=== PATIENT | male | born 1945 | race Caucasian/White ===

== ENCOUNTER 2016-04-23 19:54 | Emergency (ER) | payer MEDICARE, OTHER ==
[2016-04-23 20:02] VITALS: RESP 18
[2016-04-23] MEDS ORDERED: SODIUM CHLORIDE 0.9% 500 ML IV STA (20:12)
[2016-04-23] MEDS ORDERED: SODIUM CHLORIDE 0.9% 1,000 ML IV STA (20:12)
--- NOTE | 2016-04-23 20:13 | ED ---
General Adult HPI - General Source: patient, RN notes reviewed, old records reviewed Mode of arrival: wheelchair Limitations: no limitations <Paddy Rangel - Last Filed: 04/23/16 20:19> <Edu Burgess - Last Filed: 04/23/16 23:08> - General Chief complaint: Dizziness Stated complaint: dizzy Time Seen by Provider: 04/23/16 20:12 - History of Present Illness Initial comments: This is a 70-year-old male here for evaluation of weakness and dizziness. Patient's is been feeling dizzy and weak for about 2 hours. No significant other complaints, mild source of breath or cough. No fevers, no chest pain no abdominal pain no nausea vomiting or diarrhea. The room is not spinning around , patient is not feeling SL. (Paddy Rangel) - Related Data Previous Rx's Medication Instructions Recorded Levofloxacin [Levaquin] 500 mg PO DAILY #7 tab 04/23/16 Meclizine [Antivert] 25 mg PO TID #20 tab 04/23/16 Allergies Allergy/AdvReac Type Severity Reaction Status Date / Time No Known Allergies Allergy Verified 06/12/15 21:06 Review of Systems ROS Other: All systems not noted in ROS Statement are negative. <Paddy Rangel - Last Filed: 04/23/16 20:19> ROS Other: All systems not noted in ROS Statement are negative. <Eud Burgess - Last Filed: 04/23/16 23:08> ROS Statement: Those systems with pertinent positive or pertinent negative responses have been documented in the HPI. Past Medical History Past Medical History: COPD, Hyperlipidemia, Hypertension History of Any Multi-Drug Resistant Organisms: None Reported Past Surgical History: Hernia Repair Past Psychological History: No Psychological Hx Reported Smoking Status: Current every day smoker Past Alcohol Use History: None Reported Past Drug Use History: None Reported <Paddy Rangel - Last Filed: 04/23/16 20:19> General Exam Limitations: no limitations General appearance: alert, in no apparent distress Head exam: Present: atraumatic, normocephalic, normal inspection Eye exam: Present: normal appearance, PERRL, EOMI. Absent: scleral icterus, conjunctival injection, periorbital swelling ENT exam: Present: normal exam, mucous membranes moist Neck exam: Present: normal inspection. Absent: tenderness, meningismus, lymphadenopathy Respiratory exam: Present: normal lung sounds bilaterally. Absent: respiratory distress, wheezes, rales, rhonchi, stridor Cardiovascular Exam: Present: regular rate, normal rhythm, normal heart sounds. Absent: systolic murmur, diastolic murmur, rubs, gallop, clicks GI/Abdominal exam: Present: soft, normal bowel sounds. Absent: distended, tenderness, guarding, rebound, rigid Extremities exam: Present: normal inspection, full ROM, normal capillary refill. Absent: tenderness, pedal edema, joint swelling, calf tenderness Back exam: Present: normal inspection Neurological exam: Present: alert, oriented X3, CN II-XII intact Psychiatric exam: Present: normal affect, normal mood Skin exam: Present: warm, dry, intact, normal color. Absent: rash <Paddy Rangel - Last Filed: 04/23/16 20:19> Course <Paddy Rangel - Last Filed: 04/23/16 20:19> <Edu Burgess - Last Filed: 04/23/16 23:08> Vital Signs 04/23/16 04/23/16 19:59 21:02 Temperature 98.0 F Pulse Rate 85 77 Respiratory 18 18 Rate Blood Pressure 148/78 168/91 O2 Sat by Pulse 94 L 98 Oximetry - Reevaluation(s) Reevaluation #1: 04/23/16 23:04 The patient was endorsed to me at shift change by Dr. Rangel. CAT scan urine was pending also x-rays imaging shows no acute findings UA did show some evidence of possible infection. Patient was feeling hot he states when the episodes occurred the presentation is consistent with vertigo. He will be placed on appropriate medication (Edu Burgess) EKG Findings - EKG Comments: EKG Findings:: EKG shows normal sinus arm AV 2, VA 154, QRS 90, QTc 462 <Paddy Rangel - Last Filed: 04/23/16 20:19> Medical Decision Making - Lab Data Result diagrams: 04/23/16 20:23 04/23/16 20:23 <Edu Burgess - Last Filed: 04/23/16 23:08> - Lab Data Lab Results 04/23/16 04/23/16 04/23/16 Range/Units 20:23 20:23 20:23 WBC 6.3 (3.8-10.6) k/uL RBC 4.37 (4.30-5.90) m/uL Hgb 14.2 (13.0-17.5) gm/dL Hct 41.8 (39.0-53.0) % MCV 95.6 (80.0-100.0) fL MCH 32.6 (25.0-35.0) pg MCHC 34.1 (31.0-37.0) g/dL RDW 12.5 (11.5-15.5) % Plt Count 178 (150-450) k/uL Neutrophils % 64 % Lymphocytes % 22 % Monocytes % 6 % Eosinophils % 5 % Basophils % 1 % Neutrophils # 4.0 (1.3-7.7) k/uL Lymphocytes # 1.4 (1.0-4.8) k/uL Monocytes # 0.4 (0-1.0) k/uL Eosinophils # 0.3 (0-0.7) k/uL Basophils # 0.1 (0-0.2) k/uL PT (9.0-12.0) sec INR (<1.1) APTT (22.0-30.0) sec Sodium 143 (137-145) mmol/L Potassium 4.1 (3.5-5.1) mmol/L Chloride 108 H (98-107) mmol/L Carbon Dioxide 25 (22-30) mmol/L Anion Gap 10 mmol/L BUN 10 (9-20) mg/dL Creatinine 1.00 (0.66-1.25) mg/dL Est GFR (MDRD) Af Amer >60 (>60 ml/min/1.73 sqM) Est GFR (MDRD) Non-Af >60 (>60 ml/min/1.73 sqM) Glucose 126 H (74-99) mg/dL Calcium 9.2 (8.4-10.2) mg/dL Phosphorus 4.3 (2.5-4.5) mg/dL Magnesium 2.1 (1.6-2.3) mg/dL Total Bilirubin 0.6 (0.2-1.3) mg/dL AST 22 (17-59) U/L ALT 42 (21-72) U/L Alkaline Phosphatase 54 (38-126) U/L Total Creatine Kinase 121 (55-170) U/L CK-MB (CK-2) 1.8 (0.0-2.4) ng/mL CK-MB (CK-2) Rel Index 1.5 Troponin I <0.012 (0.000-0.034) ng/mL Total Protein 6.9 (6.3-8.2) g/dL Albumin 4.4 (3.5-5.0) g/dL Urine Color Urine Appearance (Clear) Urine pH (5.0-8.0) Ur Specific [place] (1.001-1.035) Urine Protein (Negative) Urine Glucose (UA) (Negative) Urine Ketones (Negative) Urine Blood (Negative) Urine Nitrate (Negative) Urine Bilirubin (Negative) Urine Urobilinogen (<2.0) mg/dL Ur Leukocyte Esterase (Negative) Urine RBC (0-5) /hpf Urine WBC (0-5) /hpf Urine Bacteria (None) /hpf Urine Mucus (None) /hpf 04/23/16 04/23/16 Range/Units 20:23 21:50 WBC (3.8-10.6) k/uL RBC (4.30-5.90) m/uL Hgb (13.0-17.5) gm/dL Hct (39.0-53.0) % MCV (80.0-100.0) fL MCH (25.0-35.0) pg MCHC (31.0-37.0) g/dL RDW (11.5-15.5) % Plt Count (150-450) k/uL Neutrophils % % Lymphocytes % % Monocytes % % Eosinophils % % Basophils % % Neutrophils # (1.3-7.7) k/uL Lymphocytes # (1.0-4.8) k/uL Monocytes # (0-1.0) k/uL Eosinophils # (0-0.7) k/uL Basophils # (0-0.2) k/uL PT 10.4 (9.0-12.0) sec INR 1.0 (<1.1) APTT 24.3 (22.0-30.0) sec Sodium (137-145) mmol/L Potassium (3.5-5.1) mmol/L Chloride (98-107) mmol/L Carbon Dioxide (22-30) mmol/L Anion Gap mmol/L BUN (9-20) mg/dL Creatinine (0.66-1.25) mg/dL Est GFR (MDRD) Af Amer (>60 ml/min/1.73 sqM) Est GFR (MDRD) Non-Af (>60 ml/min/1.73 sqM) Glucose (74-99) mg/dL Calcium (8.4-10.2) mg/dL Phosphorus (2.5-4.5) mg/dL Magnesium (1.6-2.3) mg/dL Total Bilirubin (0.2-1.3) mg/dL AST (17-59) U/L ALT (21-72) U/L Alkaline Phosphatase (38-126) U/L Total Creatine Kinase (55-170) U/L CK-MB (CK-2) (0.0-2.4) ng/mL CK-MB (CK-2) Rel Index Troponin I (0.000-0.034) ng/mL Total Protein (6.3-8.2) g/dL Albumin (3.5-5.0) g/dL Urine Color Light Yellow Urine Appearance Cloudy (Clear) Urine pH 7.0 (5.0-8.0) Ur Specific [place] 1.006 (1.001-1.035) Urine Protein Negative (Negative) Urine Glucose (UA) Negative (Negative) Urine Ketones Negative (Negative) Urine Blood Negative (Negative) Urine Nitrate Negative (Negative) Urine Bilirubin Negative (Negative) Urine Urobilinogen <2.0 (<2.0) mg/dL Ur Leukocyte Esterase Large H (Negative) Urine RBC 1 (0-5) /hpf Urine WBC 37 H (0-5) /hpf Urine Bacteria Rare H (None) /hpf Urine Mucus Rare H (None) /hpf Disposition <Paddy Rangel - Last Filed: 04/23/16 20:19> <Edu Burgess - Last Filed: 04/23/16 23:08> Clinical Impression: Benign positional vertigo, Urinary tract infection Disposition: HOME SELF-CARE Condition: Good Instructions: Dizziness (ED), Vertigo (ED), Urinary Tract Infection in Men (ED) Prescriptions: Levofloxacin [Levaquin] 500 mg PO DAILY #7 tab Meclizine [Antivert] 25 mg PO TID #20 tab
--- NOTE | 2016-04-23 20:40 | XR ---
EXAMINATION TYPE: XR chest 2V DATE OF EXAM: 04/23/2016 8:35 PM COMPARISON: NONE HISTORY: Weakness and dizziness TECHNIQUE: Frontal and lateral views of the chest are obtained. FINDINGS: Heart and mediastinum are normal. There is mild coarsening of interstitial markings. There is no heart failure. There is no definite pleural effusion. There are no hilar masses. IMPRESSION: Pulmonary fibrotic changes. No gross heart failure.
[2016-04-23 20:42] LABS: Basophils # (A) 0.1 k/uL (0-0.2); Basophils % (A) 1 %; CH 34.1; CHCM 35.8; Eosinophils # (A) 0.3 k/uL (0-0.7); Eosinophils % (A) 5 %; HCT 41.8 % (39.0-53.0); HDW 2.57; HGB 14.2 gm/dL (13.0-17.5); Luc % (Auto) 2; Lymphocytes # (A) 1.4 k/uL (1.0-4.8); Lymphocytes % (A) 22 %; MCH 32.6 pg (25.0-35.0); MCHC 34.1 g/dL (31.0-37.0); MCV 95.6 fL (80.0-100.0); Mean Platelet Volume 7.2; Monocytes # (A) 0.4 k/uL (0-1.0); Monocytes % (A) 6 %; Neutrophils % (A) 64 %; RBC 4.37 m/uL (4.30-5.90); RDW 12.5 % (11.5-15.5); WBC 6.3 k/uL (3.8-10.6); WBC (Perox) 6.76
[2016-04-23 20:51] LABS: Partial Thromboplastin Time 24.3 sec (22.0-30.0); Prothrombin Time 10.4 sec (9.0-12.0)
[2016-04-23 20:57] LABS: ALT 42 U/L (21-72); AST 22 U/L (17-59); Alkaline Phosphatase 54 U/L (38-126); Anion Gap 10 mmol/L; Blood Urea Nitrogen 10 mg/dL (9-20); Calcium 9.2 mg/dL (8.4-10.2); Carbon Dioxide 25 mmol/L (22-30); Chloride 108 mmol/L (98-107); Glucose 126 mg/dL (74-99); Magnesium 2.1 mg/dL (1.6-2.3); Non-African American GFR(MDRD) >60 (>60 ml/min/1.73 sqM); Phosphorous 4.3 mg/dL (2.5-4.5); Potassium 4.1 mmol/L (3.5-5.1); Sodium 143 mmol/L (137-145); Total Bilirubin 0.6 mg/dL (0.2-1.3); Total Protein 6.9 g/dL (6.3-8.2)
--- NOTE | 2016-04-23 20:59 | CT ---
EXAMINATION TYPE: CT brain wo con DATE OF EXAM: 04/23/2016 8:44 PM COMPARISON: April 26, 2013 HISTORY: Patient poor historian. Patient complains of dizziness. CT DLP: 814.2 mGycm Automated exposure control for dose reduction was used. FINDINGS: There is some cerebral cortical atrophy. There is no mass effect nor midline shift. There is no evide nce of intracranial hemorrhage. Calvarium is intact. There is minimal mucosal thickening in the ethmo id air cells. IMPRESSION: Cerebral atrophy. No acute intracranial abnormality. Minimal ethmoid sinusitis. No significant change compared to old exam.
[2016-04-23 21:11] LABS: Creatine Kinase 121 U/L (55-170)
[2016-04-23 21:25] LABS: Creatine Kinase MB 1.8 ng/mL (0.0-2.4); Troponin I <0.012 ng/mL (0.000-0.034)
[2016-04-23 22:14] LABS: Appearance,Urine Cloudy (Clear); Bacteria,Urine Rare /hpf; Bilirubin,Urine Negative (Negative); Glucose,Urine (UA) Negative (Negative); Ketones,Urine Negative (Negative); Leukocyte Esterase,Urine Large (Negative); Mucus,Urine Rare /hpf; Nitrite,Urine Negative (Negative); Particle Count 21439; Protein,Urine Negative (Negative); RBC,Urine 1 /hpf (0-5); Specific Gravity,Urine 1.006 (1.001-1.035); UA Billing (MACRO vs. MICRO) MICRO; Urobilinogen,Urine <2.0 mg/dL (<2.0); WBC,Urine 37 /hpf (0-5)
[2016-04-23] MEDS ORDERED: MECLIZINE 12.5 MG TAB PO STA (23:05)
[2016-04-23] MEDS ORDERED: LEVOFLOXACIN 500 MG TAB PO STA (23:05)
[2016-04-24 00:25] VITALS: BP 160/97; PULSE 88; TEMP 98.9
== END 2016-04-23 23:35 | disposition home or self-care (01) ==
LOC: EC 19:54
DX: H81.10 Benign paroxysmal vertigo, unspecified ear (principal); N39.0 Urinary tract infection, site not specified; F17.200 Nicotine dependence, unspecified, uncomplicated; G31.9 Degenerative disease of nervous system, unspecified; J84.10 Pulmonary fibrosis, unspecified
CPT/HCPCS: 36415; 70450; 71020; 80053; 81001; 82550; 82553; 83735; 84100; 84484; 85025; 85610; 85730; 87086; 93005; 96360; 96361; 99285

== ENCOUNTER 2016-05-12 18:50 | Inpatient (IN) | payer MEDICARE, OTHER ==
[2016-05-12] MEDS ORDERED: SODIUM CHLORIDE 0.9% 1,000 ML IV STA (19:40)
[2016-05-12] MEDS ORDERED: SCOPOLAMINE 1.5MG/72HR PATCH TRANSDERM STA (19:41)
[2016-05-12] MEDS ORDERED: METOCLOPRAMIDE 5 MG/ML 2 ML VIAL IVP STA (19:41)
[2016-05-12] MEDS ORDERED: MECLIZINE 12.5 MG TAB PO STA (19:41)
--- NOTE | 2016-05-12 19:44 | ED ---
General Adult HPI - General Chief complaint: Weakness Stated complaint: weakness Time Seen by Provider: 05/12/16 19:21 Source: patient, family, EMS, RN notes reviewed Mode of arrival: EMS Limitations: no limitations - History of Present Illness Initial comments: Patient is a pleasant 70-year-old male presenting to the emergency department complaining of dizziness. Symptoms have been present for the past almost 2 months. Patient has dizziness that described as a spinning type sensation. Symptoms do worsen with movement and upright position. Patient states symptoms have been worse the past 6 days. Patient states when symptoms get bad he feels like he could pass out. Patient has seen his doctor for this and has been given medicine however symptoms continue. No confusion. No isolated area of weakness. Son would like patient admitted. - Related Data Previous Rx's Medication Instructions Recorded Levofloxacin [Levaquin] 500 mg PO DAILY #7 tab 04/23/16 Meclizine [Antivert] 25 mg PO TID #20 tab 04/23/16 Allergies Allergy/AdvReac Type Severity Reaction Status Date / Time No Known Allergies Allergy Verified 05/12/16 20:45 Review of Systems ROS Statement: Those systems with pertinent positive or pertinent negative responses have been documented in the HPI. ROS Other: All systems not noted in ROS Statement are negative. Constitutional: Denies: fever Eyes: Denies: eye pain ENT: Denies: ear pain Respiratory: Denies: cough Cardiovascular: Denies: chest pain Endocrine: Denies: fatigue Gastrointestinal: Denies: abdominal pain Genitourinary: Denies: dysuria Musculoskeletal: Denies: back pain Skin: Denies: rash Neurological: Reports: vertigo. Denies: headache, weakness, numbness, paresthesias, confusion Past Medical History Past Medical History: COPD, Hyperlipidemia, Hypertension History of Any Multi-Drug Resistant Organisms: None Reported Past Surgical History: Hernia Repair Past Psychological History: No Psychological Hx Reported Smoking Status: Current every day smoker Past Alcohol Use History: None Reported Past Drug Use History: None Reported General Exam Limitations: no limitations General appearance: alert, in no apparent distress Head exam: Present: atraumatic, normocephalic Eye exam: Present: normal appearance, PERRL, EOMI. Absent: nystagmus ENT exam: Present: normal oropharynx, TM's normal bilaterally Neck exam: Present: normal inspection Respiratory exam: Present: normal lung sounds bilaterally Cardiovascular Exam: Present: regular rate, normal rhythm GI/Abdominal exam: Present: soft. Absent: tenderness Extremities exam: Present: normal inspection Neurological exam: Present: alert, CN II-XII intact. Absent: motor sensory deficit Expanded Speech: Present: fluid speech Cranial nerves: EOM's Intact: Normal, Facial Sensation: Normal Cerebellar function: Finger to Nose: Normal Sensory exam: Upper Extremity Light Touch: Normal, Lower Extremity Light Touch: Normal Motor strength exam: RUE: 5, LUE: 5, RLE: 5, LLE: 5 Eye Response: (4) open spontaneously Motor Response: (6) obeys commands Verbal Response: (5) oriented Psychiatric exam: Present: normal affect, normal mood Skin exam: Absent: rash Course Vital Signs 05/12/16 05/12/16 05/12/16 18:53 19:37 20:35 Temperature 98.1 F 97.0 F L 98.8 F Pulse Rate 82 80 84 Respiratory 20 18 16 Rate Blood Pressure 158/95 179/90 163/96 O2 Sat by Pulse 97 98 97 Oximetry 05/12/16 21:00 Temperature Pulse Rate 87 Respiratory 20 Rate Blood Pressure 168/90 O2 Sat by Pulse 98 Oximetry EKG Findings - EKG Comments: EKG Findings:: Normal sinus rhythm at 79. Normal intervals. Left axis. Normal QRS. No acute ST change. Medical Decision Making - Medical Decision Making Patient reexamined and still has plaints of dizziness. Case was discussed with Dr. Granger, who will admit for Dr. House. CTA will be ordered. - Lab Data Result diagrams: 05/12/16 19:05 05/12/16 20:30 Lab Results 05/12/16 05/12/16 05/12/16 Range/Units 19:05 20:30 20:30 WBC 7.5 (3.8-10.6) k/uL RBC 4.53 (4.30-5.90) m/uL Hgb 15.7 (13.0-17.5) gm/dL Hct 44.6 (39.0-53.0) % MCV 98.5 (80.0-100.0) fL MCH 34.6 (25.0-35.0) pg MCHC 35.1 (31.0-37.0) g/dL RDW 12.3 (11.5-15.5) % Plt Count 217 (150-450) k/uL Neutrophils % 64 % Lymphocytes % 21 % Monocytes % 8 % Eosinophils % 4 % Basophils % 1 % Neutrophils # 4.8 (1.3-7.7) k/uL Lymphocytes # 1.6 (1.0-4.8) k/uL Monocytes # 0.6 (0-1.0) k/uL Eosinophils # 0.3 (0-0.7) k/uL Basophils # 0.1 (0-0.2) k/uL PT 10.0 (9.0-12.0) sec INR 1.0 (<1.1) APTT 25.0 (22.0-30.0) sec Sodium (137-145) mmol/L Potassium (3.5-5.1) mmol/L Chloride (98-107) mmol/L Carbon Dioxide (22-30) mmol/L Anion Gap mmol/L BUN (9-20) mg/dL Creatinine (0.66-1.25) mg/dL Est GFR (MDRD) Af Amer (>60 ml/min/1.73 sqM) Est GFR (MDRD) Non-Af (>60 ml/min/1.73 sqM) Glucose (74-99) mg/dL Calcium (8.4-10.2) mg/dL Total Bilirubin (0.2-1.3) mg/dL AST (17-59) U/L ALT (21-72) U/L Alkaline Phosphatase (38-126) U/L Total Creatine Kinase 83 (55-170) U/L CK-MB (CK-2) 1.2 (0.0-2.4) ng/mL CK-MB (CK-2) Rel Index 1.4 Troponin I <0.012 (0.000-0.034) ng/mL Total Protein (6.3-8.2) g/dL Albumin (3.5-5.0) g/dL TSH (0.465-4.680) mIU/L 05/12/16 Range/Units 20:30 WBC (3.8-10.6) k/uL RBC (4.30-5.90) m/uL Hgb (13.0-17.5) gm/dL Hct (39.0-53.0) % MCV (80.0-100.0) fL MCH (25.0-35.0) pg MCHC (31.0-37.0) g/dL RDW (11.5-15.5) % Plt Count (150-450) k/uL Neutrophils % % Lymphocytes % % Monocytes % % Eosinophils % % Basophils % % Neutrophils # (1.3-7.7) k/uL Lymphocytes # (1.0-4.8) k/uL Monocytes # (0-1.0) k/uL Eosinophils # (0-0.7) k/uL Basophils # (0-0.2) k/uL PT (9.0-12.0) sec INR (<1.1) APTT (22.0-30.0) sec Sodium 139 (137-145) mmol/L Potassium 4.1 (3.5-5.1) mmol/L Chloride 105 (98-107) mmol/L Carbon Dioxide 22 (22-30) mmol/L Anion Gap 12 mmol/L BUN 5 L (9-20) mg/dL Creatinine 0.87 (0.66-1.25) mg/dL Est GFR (MDRD) Af Amer >60 (>60 ml/min/1.73 sqM) Est GFR (MDRD) Non-Af >60 (>60 ml/min/1.73 sqM) Glucose 109 H (74-99) mg/dL Calcium 9.1 (8.4-10.2) mg/dL Total Bilirubin 0.6 (0.2-1.3) mg/dL AST 19 (17-59) U/L ALT 32 (21-72) U/L Alkaline Phosphatase 79 (38-126) U/L Total Creatine Kinase (55-170) U/L CK-MB (CK-2) (0.0-2.4) ng/mL CK-MB (CK-2) Rel Index Troponin I (0.000-0.034) ng/mL Total Protein 7.3 (6.3-8.2) g/dL Albumin 4.3 (3.5-5.0) g/dL TSH 0.750 (0.465-4.680) mIU/L - Radiology Data Radiology results: report reviewed (Computed tomography scan of the brain shows a rounded high density areas with 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 No evidence of subarachnoid hemorrhage.), image reviewed (Chest x-ray shows fibrotic changes.) Disposition Clinical Impression: Vertigo Disposition: ADMITTED IP TO THIS HOSP
[2016-05-12 20:04] LABS: Basophils # (A) 0.1 k/uL (0-0.2); Basophils % (A) 1 %; CH 34.6; CHCM 35.3; Eosinophils # (A) 0.3 k/uL (0-0.7); Eosinophils % (A) 4 %; HCT 44.6 % (39.0-53.0); HDW 2.55; HGB 15.7 gm/dL (13.0-17.5); Luc # (Auto) 0.16; Luc % (Auto) 2; Lymphocytes # (A) 1.6 k/uL (1.0-4.8); Lymphocytes % (A) 21 %; MCH 34.6 pg (25.0-35.0); MCHC 35.1 g/dL (31.0-37.0); MCV 98.5 fL (80.0-100.0); Mean Platelet Volume 8.4; Monocytes # (A) 0.6 k/uL (0-1.0); Monocytes % (A) 8 %; Neutrophils # (A) 4.8 k/uL (1.3-7.7); Neutrophils % (A) 64 %; RBC 4.53 m/uL (4.30-5.90); RDW 12.3 % (11.5-15.5); WBC 7.5 k/uL (3.8-10.6); WBC (Perox) 7.23
--- NOTE | 2016-05-12 20:33 | CT ---
EXAMINATION TYPE: CT brain wo con DATE OF EXAM: 05/12/2016 8:23 PM COMPARISON: 04/23/2016 HISTORY: dizziness for 2-[address] DLP: 1145.1 mGycm Automated exposure control for dose reduction was used. FINDINGS: There is a rounded 11 mm high density mass at the tip of the basilar artery. This is also present on previous CT scans of 04/23/2016 and 04/26/2013 and appears not significantly different in size. The vent ricles have normal size. There is mild cerebral cortical atrophy. There is no midline shift. There is no sign of intracranial hemorrhage. 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 CT angiogram would be very helpful for further evaluation if clinically indicated. No evidence of subarachnoid hemorrhage. Cerebral atrophy.
--- NOTE | 2016-05-12 20:40 | XR ---
EXAMINATION TYPE: XR chest 2V DATE OF EXAM: 05/12/2016 8:30 PM COMPARISON: 04/23/2016 HISTORY: Weakness TECHNIQUE: Frontal and lateral views of the chest are obtained. FINDINGS: There is coarsening of interstitial pulmonary markings. There is a small hiatal hernia. Th ere is no definite heart failure. There is no pleural effusion. There are no hilar masses. Thoracic a fiona is atheromatous. There are chest leads. IMPRESSION: Interstitial fibrotic changes. Small hiatal hernia. Inspiration is improved slightly com pared to last exam.
[2016-05-12 20:52] LABS: ALT 32 U/L (21-72); AST 19 U/L (17-59); Alkaline Phosphatase 79 U/L (38-126); Anion Gap 12 mmol/L; Blood Urea Nitrogen 5 mg/dL (9-20); Calcium 9.1 mg/dL (8.4-10.2); Carbon Dioxide 22 mmol/L (22-30); Chloride 105 mmol/L (98-107); Glucose 109 mg/dL (74-99); Non-African American GFR(MDRD) >60 (>60 ml/min/1.73 sqM); Potassium 4.1 mmol/L (3.5-5.1); Sodium 139 mmol/L (137-145); Total Bilirubin 0.6 mg/dL (0.2-1.3); Total Protein 7.3 g/dL (6.3-8.2)
[2016-05-12] MEDS ORDERED: DIAZEPAM 5 MG/ML 2 ML SYRINGE IVP STA (21:01)
[2016-05-12 21:10] LABS: Creatine Kinase 83 U/L (55-170)
[2016-05-12 21:23] LABS: Creatine Kinase MB 1.2 ng/mL (0.0-2.4); Troponin I <0.012 ng/mL (0.000-0.034)
[2016-05-12] MEDS ORDERED: NALOXONE 0.4 MG/ML 1 ML VIAL IV PRN (21:33)
[2016-05-12] MEDS ORDERED: RX INFO: IV CONTRAST WAS GIVEN 1 EACH MISC MISCELLANE PRN (21:35)
[2016-05-12] MEDS ORDERED: MECLIZINE 25 MG TAB PO PRN (21:35)
[2016-05-12] MEDS ORDERED: SODIUM CHLORIDE 0.9% 1,000 ML IV SCH (21:45)
--- NOTE | 2016-05-12 22:46 | CT ---
EXAMINATION TYPE: CT angio head neck DATE OF EXAM: 05/12/2016 10:10 PM COMPARISON: NONE HISTORY: Dizziness for 2-[address] DLP: 401.8 mGycm CONTRAST: Performed with IV Contrast, patient injected with 65 mL of Omnipaque 350. Combination Contrast CTA cervical carotids and [place] CTA cervical carotids with 3-D recons truction Contrast CTA of the cervical carotids was performed 3-D reconstruction imaging obtained at a separate workstation. Mild atherosclerotic plaques are noted in the visualized thoracic aorta. Right carotid system: No significant plaque is seen of the right common carotid artery. There is mil d plaque also noted at the carotid bulb and proximal ICA with less than 50% narrowing.. No significa nt diameter reduction. ECA is patent. Right vertebral artery appears unremarkable except for mild atherosclerotic calcification in the base of the brain.. Left carotid system: No significant plaque is seen of the left common carotid artery. There is mild plaque also noted at the carotid bulb and proximal ICS with less than 50% narrowing. Mild narrowing i s suggested in the proximal left internal carotid artery. No significant diameter reduction. ECA is patent. Left vertebral artery appears unremarkable except for mild atherosclerotic plaques in the base of the brain with less than 50% narrowing.. OTHERS: Mild and symmetric changes are noted in the upper lung pena. [id number] degenerative changes are present in the cervical spine. IMPRESSION: 1. No significant diameter reduction to account for the patient's symptoms. 2. Mild atherosclerotic calcific plaques are noted in bilateral carotid bulb areas and proximal inter nal carotid arteries with less than 50% narrowing. 3. 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 CTA [place] WITH 3-D RECONSTRUCTION. Contrast CTA of the [place] was performed 3-D reconstruction imaging obtained at a separate workstation. Vertebrobasilar system as well as intracranial portions of the internal carotid arteries and their ma daron tributaries are patent. There is evidence of 1.2 cm aneurysm in the basilar tip area as seen in the axial image 13 series 10 and coronal image 19 series 7. Rest of the arterial structures including anterior, middle and posterior cerebral arteries and anteri or communicating and posterior communicating arteries appear grossly unremarkable.. Mild atherosclerotic calcification is noted in the vertebral arteries in the base of the brain withou t significant stenosis. Please note MRI provides greater sensitivity and specificity. Visualized brain appears grossly unrem arkable. Mild mucosal thickening is noted in the maxillary sinuses with chronic sinusitis changes. IMPRESSION: 1. 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 2. No other significant acute abnormality is noted in the visualized [place] arterial struct ures. A phone report is given to Dr. Clement at the time of the dictation.
[2016-05-12 23:03] VITALS: BMI 24.3
[2016-05-12 23:03] LABS: Appearance,Urine Clear (Clear); Bilirubin,Urine Negative (Negative); Glucose,Urine (UA) Negative (Negative); Ketones,Urine Negative (Negative); Leukocyte Esterase,Urine Small (Negative); Nitrite,Urine Negative (Negative); Particle Count 1680; Protein,Urine Negative (Negative); RBC,Urine 8 /hpf (0-5); Squamous Epithelial Cell,Urine 1 /hpf (0-4); UA Billing (MACRO vs. MICRO) MICRO; Urobilinogen,Urine <2.0 mg/dL (<2.0); WBC,Urine 4 /hpf (0-5)
[2016-05-12 23:10] LABS: Specific Gravity,Urine >1.050 (1.001-1.035)
[2016-05-12] MEDS ORDERED: NITROGLYCERIN SL TABS 0.4 MG TAB SUBLINGUAL PRN (23:38)
[2016-05-13] MEDS: METOCLOPRAMIDE 5 MG/ML 2 ML VIAL IVP SCH ×3 (00:34→13:59)
[2016-05-13] MEDS: MECLIZINE 25 MG TAB PO SCH ×3 (05:19→18:03)
[2016-05-13] MEDS ORDERED: CITALOPRAM HYDROBROMIDE 20 MG TAB PO SCH ×2 (09:00)
[2016-05-13] MEDS ORDERED: TAMSULOSIN 0.4 MG CAP.ER.24H PO SCH (09:00)
[2016-05-13] MEDS ORDERED: FUROSEMIDE 20 MG TAB PO SCH (09:00)
[2016-05-13] MEDS ORDERED: PREGABALIN 75 MG CAP PO SCH (09:00)
[2016-05-13] MEDS ORDERED: risperiDONE 0.5 MG TAB PO SCH (09:00)
[2016-05-13] MEDS ORDERED: HYDROcodone/APAP 5-325MG 1 EACH TAB PO SCH (09:00)
[2016-05-13] MEDS ORDERED: MELOXICAM 7.5 MG TAB PO SCH (09:00)
[2016-05-13 11:46] VITALS: PULSE 64; TEMP 98.7
--- NOTE | 2016-05-13 14:01 | P.CONS ---
History of Present Illness - Reason for Consult Consult date: 05/13/16 - Chief Complaint Vertigo - History of Present Illness Is a pleasant 70-year-old male being evaluated by the neurology service for complaints of dizziness and vertigo over the last 2 months. He was brought in the [facility] emergency room due to worsening in these conditions over the past 6 days. She has feelings of presyncope without van syncopal episode. He denies confusion with these episodes. He denies significant headache. He denies significant weakness. His vital signs are stable and he has no significant lab abnormalities on admission. Initial CT of the brain in the ER showed a rounded high density area suggestive of the basilar tip artery aneurysm. A subsequent CT angiogram of the head and neck were done. CTA of the neck showed no significant flow-limiting stenosis. 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 At the time of my exam he is walking back to his bed from the bathroom, and no acute distress. Review of Systems All systems: negative Past Medical History Past Medical History: COPD, Hyperlipidemia, Hypertension, Memory Impairment, Osteoarthritis (OA) Additional Past Medical History / Comment(s): Leaky coronary valves X3 History of Any Multi-Drug Resistant Organisms: None Reported Past Surgical History: Hernia Repair Past Anesthesia/Blood Transfusion Reactions: No Reported Reaction Past Psychological History: No Psychological Hx Reported Smoking Status: Current every day smoker Past Alcohol Use History: None Reported Past Drug Use History: None Reported - Past Family History Mother Family Medical History: Hypertension Medications and Allergies Home Medications Medication Instructions Recorded Confirmed Type Citalopram Hydrobromide 30 mg PO DAILY 05/12/16 05/13/16 History Furosemide [Lasix] 20 mg PO DAILY 05/12/16 05/13/16 History HYDROcodone/APAP 5-325MG [[place] 1 tab PO BID 05/12/16 05/13/16 History 5-325] Meloxicam 15 mg PO DAILY 05/12/16 05/13/16 History Nitroglycerin Sl Tabs [Nitrostat] 0.4 mg SUBLINGUAL Q5M PRN 05/12/16 05/13/16 History Pregabalin [Lyrica] 75 mg PO BID 05/12/16 05/13/16 History Simvastatin [Zocor] 40 mg PO HS 05/12/16 05/13/16 History Tamsulosin HCl [Flomax] 0.4 mg PO DAILY 05/12/16 05/13/16 History risperiDONE 0.5 mg PO QAM 05/12/16 05/13/16 History risperiDONE 2 mg PO HS 05/12/16 05/13/16 History QUEtiapine FUMARATE [SEROquel] 200 mg PO HS 05/13/16 05/13/16 History Allergies Allergy/AdvReac Type Severity Reaction Status Date / Time No Known Allergies Allergy Verified 05/12/16 23:10 Physical Exam Vitals: Vital Signs Temp Pulse Pulse Resp BP BP Pulse Ox 05/13/16 11:45 98.7 F 64 18 133/80 95 05/13/16 11:05 96 05/13/16 07:44 97.5 F L 76 18 107/73 96 05/13/16 04:00 98.5 F 73 18 130/80 96 05/12/16 23:23 78 18 138/84 94 L 05/12/16 22:20 97.7 F 73 18 196/99 95 05/12/16 22:03 96.9 F L 80 18 157/85 98 Intake and Output 05/12/16 05/13/16 05/13/16 22:59 06:59 14:59 Intake Total 275 340 Balance 275 340 Intake: Intake, IV Titration 175 Amount Sodium Chloride 0.9% 1, 175 000 ml @ 20 mls/hr IV . Q24H [facility] Rx#:[id number] Oral 100 340 Other: Voiding Method Toilet Toilet # Voids 2 1 Weight 74.843 kg 74.5 kg - Constitutional General appearance: average body habitus, cooperative - EENT Eyes: no abnormal pupil, PERRLA, no ptosis ENT: hearing grossly normal - Neck Neck: normal ROM, no rigidity - Respiratory Respiratory: negative: prolonged expiration, prolonged inspiration - Cardiovascular Rhythm: regular - Gastrointestinal General gastrointestinal: no distended, no tenderness - Neurologic He is alert awake and oriented 3. Speech and language are normal. There is no lateralizing weakness seen. Cranial nerves II through XII are intact globally. No tremors or seizure-like activities are seen. Results CBC & Chem 7: 05/12/16 19:05 05/12/16 20:30 Labs: Abnormal Lab Results - Last 24 Hours (Table) 02/17/17 Range/Units 22:46 Ur Specific [place] >1.050 H (1.001-1.035) Ur Leukocyte Esterase Small H (Negative) Urine RBC 8 H (0-5) /hpf Assessment and Plan (1) Brain aneurysm Status: Acute (2) Dizziness Status: Acute (3) Vertigo Status: Acute Plan: Although we do not believe that his aneurysm as the cause for his symptoms this cannot be totally excluded. Nevertheless he does need an urgent neurosurgical consult. For this he will need to be transferred. Nursing staff has been alerted to this on our working on finding an accepting facility. For now continue neurological checks. Otherwise he would be cleared for transfer. I have reviewed the history and physical on the above patient. I have reviewed the above note, and agree.
--- NOTE | 2016-05-13 17:28 | HP ---
DATE OF ADMISSION: 05/13/2016 CHIEF COMPLAINT: Dizziness. HISTORY OF PRESENT ILLNESS: Mr. Rudd is a 70-year-old male with a known history of hypertension, hyperlipidemia, COPD and bipolar disorder, came to the hospital with complaints of dizziness on and off for the past 2 months, patient says that he felt like spinning of the room and patient was also having vertigo. Sometimes patient feels like room spinning around and with the moment and upright position, which has been worse for the past 6 days. Patient says that when symptoms get bad, he feels like he could pass out. Patient has seen a primary care physician and was started on meclizine, but did not relieve his symptoms much. Otherwise, patient denied any headache or confusion, no fever, no chills. No recent illnesses or sick contacts at home. The patient otherwise denies any weakness of the legs and hands. Patient had a CT head done in the ER that showed there is a rounded high density area suggestive of basilar tip aneurysm and subsequent CT angiogram confirmed that. REVIEW OF SYSTEMS: CONSTITUTIONAL: The patient is a poor historian due to underlying bipolar disorder. No fever. No chills. No weakness or malaise. RESPIRATORY: No cough or sputum production. CARDIOVASCULAR: No chest pain. No shortness of breath. No leg swelling. ABDOMEN: No nausea, vomiting or abdominal pain. GENITOURINARY: Negative. ENDOCRINE: Negative. NEUROLOGIC: Patient does have dizziness. No lightheadedness. No headache. No numbness or tingling. GENITOURINARY: Negative. ( ). Negative. PSYCHIATRY: Negative. All other 14 point review of systems negative except as above. PAST MEDICAL HISTORY: Hypertension, hyperlipidemia, COPD, bipolar disorder. PAST SURGICAL HISTORY: Hernia repair. SOCIAL HISTORY: Currently an everyday smoker. Occasional alcohol use. Denied any drugs or IVDU. FAMILY HISTORY: Denied any history of hypertension, diabetes mellitus or premature heart disease in the family. ALLERGIES: No known drug allergies. Home medications include: 1. Meclizine. 2. Citalopram. 3. Lasix. 4. [place]. 5. Meloxicam. 6. Nitroglycerin. 7. Pregabalin. 8. Simvastatin. 9. Flomax. 10. Risperidone. 11. Seroquel. PHYSICAL EXAMINATION: A 70-year-old male lying in bed comfortably, awake, alert, oriented, x3. He appears in no apparent distress. VITALS: Blood pressure is 130/80, pulse is 73, respiratory rate 18, temperature afebrile. Pulse ox 92% on room air. HEENT: Atraumatic, normocephalic. Neck is supple. No JVD. CVS: S1, S2 heard. No murmurs or gallop. Patient does have systolic murmur 2/6 and no gallop. LUNGS: Bilateral air entry is present and decreased breath sounds basally. Nonlabored breathing. No wheezing. ABDOMEN: Soft, nontender. Bowel sounds present. HEALTH SERVICES MANAGER: Awake, alert, oriented x3. No focal neurologic deficits. EXTREMITIES: No edema. Pulses palpable bilaterally. No clubbing or cyanosis. PSYCHIATRIC: Cooperative. LABORATORY DATA: WBC 7.5, hemoglobin 15.7, platelets 217, INR 1.0, sodium 139, potassium 4.1, chloride 106, bicarb is 22, BUN 5, creatinine 0.87. Blood sugar is 109. Calcium 9.1. Troponin less than 0.012, TSH is 0.750. UA negative for infection. Albumin 4.3. Liver enzymes within normal limits. CT of the head was reviewed and CT angiogram of the chest was reviewed. EKG normal sinus rhythm. CHEST X-RAY: No acute cardiopulmonary process. IMPRESSION: 1. Dizziness and near syncope. 2. 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 3. Hypertension, controlled. 4. Hyperlipidemia. 5. Chronic obstructive pulmonary disease, stable. 6. Bipolar disorder/ psychiatry illness. 7. Deep venous thrombosis prophylaxis, heparin subcu. 8. Vertigo. DISCUSSION AND PLAN: Patient will be continued on meclizine at this time and the patient evaluated by neurology and recommended neurosurgery evaluation, aneurysm as etiology of his dizziness and vertigo cannot be excluded at this time. Continue with the home medications. Further recommendations based on clinical course. Patient is agreeable to be transferred to [facility].
[2016-05-13 17:56] VITALS: BP 140/81; RESP 16
[2016-05-13] MEDS ORDERED: ATORVASTATIN 20 MG TAB PO SCH (21:00)
[2016-05-13] MEDS ORDERED: QUEtiapine XR 200 MG TAB.ER.24H PO SCH (21:00)
[2016-05-13] MEDS ORDERED: risperiDONE 2 MG TAB PO SCH (21:00)
--- NOTE | 2016-05-15 09:30 | DS ---
DATE OF ADMISSION: 05/13/2016 DATE OF DISCHARGE: 05/13/2016 DISCHARGE DIAGNOSES: 1. Dizziness and near syncope. 2. 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 3. Hypertension. 4. Hyperlipidemia. 5. Chronic obstructive pulmonary disease, stable. 6. Bipolar disorder/psychiatric illness. 7. Deep venous thrombosis prophylaxis, heparin subQ. 8. History of vertigo. HOSPITAL COURSE: Mr. Rudd is a 70-year-old male with a known history of multiple medical problems as discussed above, was admitted to the hospital with dizziness for the past 2 months. Patient felt like room was spinning and was having vertigo-like symptoms, which has been worsening for the past 6 days. Patient came to the hospital. Patient underwent CT of the head showed rounded high-density areas suggesting of ( ) artery disease and patient underwent CT angio of the brain which came out the same. Patient was seen by Neurology and ( ) aneurysm of 1.2 cm and patient had symptoms of dizziness and vertigo even though is may not be related to symptoms related to his finding of aneurysm. Neurology recommended to be seen by Neurosurgery and I did discuss with the [facility] Transfer Team and also I did discuss with the [facility] ( ) staff. Agreed to accept the patient and patient was transferred to [facility] in stable condition. DISCHARGE PHYSICAL EXAMINATION: Laboratory data reviewed. Discharge medication reconciliation was done and patient was advised to follow with Dr. House upon discharge. Time taken more than 35 minutes including 18 minutes to field counsel the patient and coordinating discharge.
== END 2016-05-13 18:30 | disposition short-term general hospital (02) | DRG 149 ==
LOC: EC 18:50 → 3OBS 21:32 → OBSVTOIN 05-13 15:16
PROVIDERS: ADMIT Internal Medicine; ATTEND Internal Medicine
DX: R42 Dizziness and giddiness (principal); I67.1 Cerebral aneurysm, nonruptured; J44.9 Chronic obstructive pulmonary disease, unspecified; E78.5 Hyperlipidemia, unspecified; M19.90 Unspecified osteoarthritis, unspecified site; R55 Syncope and collapse; F31.9 Bipolar disorder, unspecified; I10 Essential (primary) hypertension; F17.200 Nicotine dependence, unspecified, uncomplicated; Z79.1 Long term (current) use of non-steroidal anti-inflammatories (NSAID); Z79.891 Long term (current) use of opiate analgesic; Z79.899 Other long term (current) drug therapy
CPT/HCPCS: 36415; 70450; 70496; 70498; 71020; 80053; 81001; 82550; 82553; 84443; 84484; 85025; 85610; 85730; 93005; 94760; 96374; 96375; 99285

== ENCOUNTER 2016-05-23 18:16 | Emergency (ER) | payer MEDICARE, OTHER ==
[2016-05-23] MEDS ORDERED: METOCLOPRAMIDE 5 MG/ML 2 ML VIAL IVP STA (18:42)
[2016-05-23] MEDS ORDERED: GLUCAGON 1 MG/ML VIAL IVP STA (18:42)
[2016-05-23] MEDS ORDERED: NITROGLYCERIN SL TABS 0.4 MG TAB SUBLINGUAL STA (18:43)
--- NOTE | 2016-05-23 18:46 | ED ---
General Adult HPI - General Chief complaint: ENT Stated complaint: Esophageal foreign body Time Seen by Provider: 05/23/16 18:33 Source: patient, family, EMS, RN notes reviewed Mode of arrival: EMS Limitations: no limitations - History of Present Illness Initial comments: Patient is a pleasant 70-year-old male presenting to the emergency department with concerns for esophageal foreign body. Patient was eating steak around 1 hour ago. Patient feels like it is stuck. Patient has been unable to swallow since that time. Patient has been spitting up. No dyspnea. Patient has had similar symptoms previously. Patient did have surgery for his hiatal hernia a few years ago. - Related Data Home Medications Medication Instructions Recorded Confirmed Citalopram Hydrobromide 30 mg PO DAILY 05/12/16 05/23/16 Furosemide [Lasix] 20 mg PO DAILY 05/12/16 05/23/16 HYDROcodone/APAP 5-325MG [[place] 1 tab PO BID 05/12/16 05/23/16 5-325] Meloxicam 15 mg PO DAILY 05/12/16 05/23/16 Nitroglycerin Sl Tabs [Nitrostat] 0.4 mg SUBLINGUAL Q5M PRN 05/12/16 05/23/16 Pregabalin [Lyrica] 75 mg PO BID 05/12/16 05/23/16 Simvastatin [Zocor] 40 mg PO DAILY 05/12/16 05/23/16 Tamsulosin HCl [Flomax] 0.4 mg PO DAILY 05/12/16 05/23/16 risperiDONE 0.5 mg PO QAM 05/12/16 05/23/16 risperiDONE 2 mg PO HS 05/12/16 05/23/16 QUEtiapine FUMARATE [SEROquel] 200 mg PO DAILY 05/13/16 05/23/16 Allergies Allergy/AdvReac Type Severity Reaction Status Date / Time No Known Allergies Allergy Verified 05/12/16 23:10 Review of Systems ROS Statement: Those systems with pertinent positive or pertinent negative responses have been documented in the HPI. ROS Other: All systems not noted in ROS Statement are negative. Constitutional: Denies: fever Eyes: Denies: eye pain ENT: Denies: ear pain Respiratory: Denies: cough, dyspnea Cardiovascular: Denies: chest pain Endocrine: Denies: fatigue Gastrointestinal: Reports: vomiting (Spitting up). Denies: abdominal pain Genitourinary: Denies: dysuria Musculoskeletal: Denies: back pain Skin: Denies: rash Neurological: Denies: weakness Past Medical History Past Medical History: COPD, Hyperlipidemia, Hypertension, Memory Impairment, Osteoarthritis (OA) Additional Past Medical History / Comment(s): Leaky coronary valves X3 History of Any Multi-Drug Resistant Organisms: None Reported Past Surgical History: Hernia Repair Past Anesthesia/Blood Transfusion Reactions: No Reported Reaction Past Psychological History: No Psychological Hx Reported Smoking Status: Current every day smoker Past Alcohol Use History: None Reported Past Drug Use History: None Reported - Past Family History Mother Family Medical History: Hypertension General Exam Limitations: no limitations General appearance: alert, in no apparent distress Head exam: Present: atraumatic Eye exam: Present: normal appearance, PERRL ENT exam: Present: normal oropharynx Neck exam: Present: normal inspection Respiratory exam: Present: normal lung sounds bilaterally Cardiovascular Exam: Present: regular rate, normal rhythm GI/Abdominal exam: Present: soft. Absent: tenderness Extremities exam: Present: normal inspection. Absent: pedal edema, calf tenderness Neurological exam: Present: alert Psychiatric exam: Present: normal affect, normal mood Skin exam: Absent: rash Course Vital Signs 05/23/16 05/23/16 05/23/16 18:22 18:59 19:10 Temperature 96.6 F L Pulse Rate 97 97 104 H Respiratory 20 16 24 Rate Blood Pressure 176/92 154/88 145/88 O2 Sat by Pulse 98 96 96 Oximetry 05/23/16 05/23/16 19:24 21:18 Temperature Pulse Rate 103 H 95 Respiratory 20 20 Rate Blood Pressure 151/95 156/78 O2 Sat by Pulse 96 95 Oximetry - Reevaluation(s) Reevaluation #1: 05/23/16 19:23 Patient still unable to swallow his secretions. Dr. Ingram called and will come in for endoscopy. Medical Decision Making - Medical Decision Making Patient was scoped by GI. Patient is awake and improved and requesting discharge. Disposition Clinical Impression: Esophageal foreign body Disposition: HOME SELF-CARE Condition: Stable Instructions: Esophageal Foreign Body (ED) Additional Instructions: Please follow-up with Dr. Ingram from gastroenterology as directed. Also your primary care physician. Liquid diet for the next 24 hours. Return for not tolerating oral intake, difficulty breathing, worsening symptoms or other concerns Referrals: Geno House III, MD [Primary Care Provider] - 1-2 days Kelley Morataya MD [STAFF PHYSICIAN] - 1-2 days
--- NOTE | 2016-05-23 19:07 | XR ---
EXAMINATION TYPE: XR chest 2V DATE OF EXAM: 05/23/2016 6:54 PM COMPARISON: 05/12/2016 HISTORY: Possible foreign body in the esophagus. TECHNIQUE: Frontal and lateral views of the chest are obtained. FINDINGS: Heart is normal. There is coarsening of interstitial markings. There is no heart failure. Lungs are clear of consolidation. There are chest leads. There is no pleural effusion. There is no si gn of a pneumothorax. IMPRESSION: Mild pulmonary fibrotic changes. No change compared to last exam. No evidence of radiopa que foreign body. Normal heart.
[2016-05-23] MEDS ORDERED: LORazepam 2 MG/ML SYRINGE IV STA (19:18)
[2016-05-23] MEDS ORDERED: IV FLUID CONTINUATION 1,000 ML IV ONE (20:08)
[2016-05-23] MEDS ORDERED: PROPOFOL 10 MG/ML 20 ML VIAL IV ONE (20:39)
--- NOTE | 2016-05-23 21:04 | P.PCN ---
Date of Procedure: 05/23/16 Procedure(s) Performed: BRIEF HISTORY: Patient is a 70-year-old, pleasant, white male, came into the emergency room with acute for dysphagia. He was eating a piece of steak around 5 PM and could not swallow any further. He states that he had Cheng fundoplication done 2 years ago and since then he has intermittent dysphagia to solids. He scheduled for an emergency upper endoscopy for foreign body removal. PROCEDURE PERFORMED: Esophagogastroduodenoscopy with foreign body removal. PREOPERATIVE DIAGNOSIS: Acute food dysphagia. IV sedation per anesthesia. PROCEDURE: After informed consent was obtained, the patient was brought into the endoscopy unit. IV conscious sedation was administered by Anesthesia under continuous monitoring. Initially the Olympus GIF-140 video endoscope was inserted into the mouth. Esophagus intubated without any difficulty. It was gradually advanced into the distal esophagus which appeared very tortuous and there was large piece of meat impacted in the distal esophagus. Using a [place] net some of the piece of meat was broken and removed along with the scope. After performing this several times I was able to gently advance the rest of the food bolus into the stomach. Scope at this time was advanced into the stomach and duodenum and carefully examined. The bulb and the second part of the duodenum appeared normal. The scope at this time was withdrawn to the stomach, adequately insufflated with air, and upon careful examination, mucosa of the antrum, body, cardia and the fundus appeared normal. The scope was then withdrawn into the esophagus. Small hiatal hernia noted. The GE junction was located at 39 cm from the incisors. There was distal esophageal stricture identified at the site of food impaction. There was small mucosal tear identified but no active oozing. The rest of the esophagus appeared normal however in the distal esophagus it was very tortuous. There were no erosions or ulcerations seen and the patient tolerated the procedure well. IMPRESSION: 1 Food impaction in the distal esophagus status post removal as described above.. 2. Distal esophageal stricture and a small hiatal hernia. RECOMMENDATIONS: The findings of this examination were discussed with the patient. He was advised to be on a soft diet and can be discharged home today with outpatient follow-up in 2 weeks..
[2016-05-23 21:52] VITALS: BP 157/88; PULSE 88; RESP 18; TEMP 98.1
== END 2016-05-23 22:07 | disposition home or self-care (01) ==
LOC: EC 18:16
DX: J44.9 Chronic obstructive pulmonary disease, unspecified (principal); E78.5 Hyperlipidemia, unspecified; T18.108A Unspecified foreign body in esophagus causing other injury, initial encounter; Z79.899 Other long term (current) drug therapy; F17.210 Nicotine dependence, cigarettes, uncomplicated
CPT/HCPCS: 96374; 96375; 71020; 43247; 99284; J2060; J1610; J2765; J2704

== ENCOUNTER 2016-06-12 16:04 | Emergency (ER) | payer MEDICARE, OTHER ==
[2016-06-12] MEDS ORDERED: NITROGLYCERIN SL TABS 0.4 MG TAB SUBLINGUAL STA (17:05)
[2016-06-12 17:15] LABS: Basophils % (A) 0 %; CH 34.2; CHCM 35.4; Eosinophils # (A) 0.2 k/uL (0-0.7); Eosinophils % (A) 3 %; HCT 44.3 % (39.0-53.0); HDW 2.41; HGB 15.1 gm/dL (13.0-17.5); Luc # (Auto) 0.18; Luc % (Auto) 3; Lymphocytes # (A) 1.4 k/uL (1.0-4.8); Lymphocytes % (A) 21 %; MCHC 34.1 g/dL (31.0-37.0); MCV 96.9 fL (80.0-100.0); Mean Platelet Volume 6.7; Monocytes # (A) 0.4 k/uL (0-1.0); Monocytes % (A) 6 %; Neutrophils # (A) 4.4 k/uL (1.3-7.7); Neutrophils % (A) 67 %; RBC 4.57 m/uL (4.30-5.90); RDW 12.3 % (11.5-15.5); WBC 6.6 k/uL (3.8-10.6); WBC (Perox) 6.38
[2016-06-12 17:28] LABS: ALT 30 U/L (21-72); AST 21 U/L (17-59); Alkaline Phosphatase 66 U/L (38-126); Anion Gap 10 mmol/L; Blood Urea Nitrogen 10 mg/dL (9-20); Calcium 9.2 mg/dL (8.4-10.2); Carbon Dioxide 26 mmol/L (22-30); Chloride 105 mmol/L (98-107); Glucose 95 mg/dL (74-99); Magnesium 2.1 mg/dL (1.6-2.3); Non-African American GFR(MDRD) >60 (>60 ml/min/1.73 sqM); Sodium 141 mmol/L (137-145); Total Bilirubin 0.7 mg/dL (0.2-1.3); Total Protein 6.8 g/dL (6.3-8.2)
--- NOTE | 2016-06-12 17:35 | XR ---
EXAMINATION TYPE: XR chest 1V portable DATE OF EXAM: 06/12/2016 5:27 PM COMPARISON: 05/23/2016 HISTORY: Hypertension TECHNIQUE: Single frontal view of the chest is obtained. FINDINGS: There is pulmonary vascular congestion. There is a poor inspiration. There are chest leads . There are no hilar masses. Heart is not grossly enlarged. IMPRESSION: There is increasing pulmonary vascular congestion compared to last exam. Mild heart fail ure cannot be excluded. No definite pleural effusion seen.
[2016-06-12] MEDS ORDERED: LORazepam 2 MG/ML SYRINGE IV STA (18:22)
--- NOTE | 2016-06-12 18:31 | ED ---
Dizziness HPI - General Chief Complaint: Dizziness Stated Complaint: weakness/dizziness Time Seen by Provider: 06/12/16 16:22 Source: EMS Mode of arrival: EMS Limitations: no limitations - History of Present Illness Initial Comments: Patient is a 70-year-old male with history of chronic intermittent dizziness, brain aneurysm, COPD, hyperlipidemia, hypertension, memory impairment presenting with weakness/dizziness/shaking. Patient has a recurrent history of the similar. Family state patient does not eat well and then develops generalized weakness and shaking. Patient get anxious and declines of chest pain. Patient then calls the ambulance. Patient has assistance at home for which someone provides him his food and lays out his medications. Sometimes patient will forget his medications. Patient arrived here complaining of chest pain requesting nitro. Patient also requested Ativan. - Related Data Home Medications Medication Instructions Recorded Confirmed Citalopram Hydrobromide 30 mg PO DAILY 05/12/16 06/12/16 Furosemide [Lasix] 20 mg PO DAILY 05/12/16 06/12/16 HYDROcodone/APAP 5-325MG [[place] 1 tab PO Q12H PRN 05/12/16 06/12/16 5-325] Meloxicam 15 mg PO DAILY 05/12/16 06/12/16 Nitroglycerin Sl Tabs [Nitrostat] 0.4 mg SUBLINGUAL Q5M PRN 05/12/16 06/12/16 Pregabalin [Lyrica] 75 mg PO BID 05/12/16 06/12/16 Simvastatin [Zocor] 40 mg PO HS 05/12/16 06/12/16 Tamsulosin HCl [Flomax] 0.4 mg PO DAILY 05/12/16 06/12/16 risperiDONE 2 mg PO HS 05/12/16 06/12/16 Fluticasone Nasal [place] [Flonase 2 spr EA NOSTRIL DAILY 06/12/16 06/12/16 Nasal [place]] Meclizine [Antivert] 12.5 mg PO BID PRN 06/12/16 06/12/16 Potassium Chloride ER [K-Dur 10] 10 meq PO DAILY 06/12/16 06/12/16 QUEtiapine [SEROquel] 50 mg PO HS 06/12/16 06/12/16 Solifenacin Succinate [Vesicare] 10 mg PO DAILY 06/12/16 06/12/16 risperiDONE [RisperDAL] 1 mg PO QAM 06/12/16 06/12/16 Allergies Allergy/AdvReac Type Severity Reaction Status Date / Time No Known Allergies Allergy Verified 06/12/16 16:44 Review of Systems ROS Statement: Those systems with pertinent positive or pertinent negative responses have been documented in the HPI. Constitutional: No fever and no chills. HENT: No congestion, no rhinorrhea and no sore throat. Eyes: No discharge and no redness. Respiratory: No cough and no shortness of breath. Cardiovascular: +chest pain and no palpitations. Gastrointestinal: No nausea, no vomiting, no abdominal pain and no diarrhea. Genitourinary: No dysuria and no hematuria. Musculoskeletal: No back pain and no arthralgias. Skin: No pallor and no rash. Neurological: +dizziness and No headaches. ROS Other: All systems not noted in ROS Statement are negative. Past Medical History Past Medical History: COPD, Hyperlipidemia, Hypertension, Memory Impairment, Osteoarthritis (OA) Additional Past Medical History / Comment(s): Leaky coronary valves X3 History of Any Multi-Drug Resistant Organisms: None Reported Past Surgical History: Hernia Repair Past Anesthesia/Blood Transfusion Reactions: No Reported Reaction Past Psychological History: Anxiety Smoking Status: Current every day smoker Past Alcohol Use History: None Reported Past Drug Use History: None Reported - Past Family History Mother Family Medical History: Hypertension General Exam - General Exam Comments Initial Comments: Constitutional: Patient appears well-developed and well-nourished. No distress. Head: Normocephalic and atraumatic. Eyes: Conjunctivae and EOM are normal. Right eye exhibits no discharge. Left eye exhibits no discharge. No scleral icterus. Neck: Normal range of motion. Neck supple. Cardiovascular: Normal rate and regular rhythm. No murmur heard. Pulmonary/Chest: Effort normal and breath sounds normal. No respiratory distress. No wheezes. Abdominal: Soft. No distension. There is no tenderness. There is no rebound and no guarding. Musculoskeletal: Normal range of motion. No edema or tenderness. Neurological: Patient alert and oriented to person, place, and time. Patient was resting tremor bilaterally. Skin: Skin is warm and dry. Not diaphoretic. Nursing notes and vitals reviewed. Limitations: no limitations Course Vital Signs 06/12/16 06/12/16 06/12/16 16:13 18:32 19:20 Temperature 98.1 F 97.9 F Pulse Rate 78 73 71 Respiratory 18 18 18 Rate Blood Pressure 199/97 169/99 156/88 O2 Sat by Pulse 95 97 97 Oximetry - Reevaluation(s) Reevaluation #1: Family agrees that patient is at baseline. Patient feeling much better after medication. Blood pressure control. EKG Findings - EKG Comments: EKG Findings:: Rate 74. NSR. No ST-T wave changes. MA internal normal . QRS interval normal. QTc duration normal. Medical Decision Making - Medical Decision Making Patient is a 70-year-old male with history of chronic intermittent dizziness for which is brought in by patient not eating or taking his medications. Patient then develops chest pain and per family calls EMS. Patient arrives complaining of generalized dizziness, chest pain requesting Ativan and nitro. EKG unremarkable. Vital signs stable. Patient was given Ativan for his anxiousness and nitro for his chest pain and blood pressure. Family state patient is at baseline and does this multiple times. Patient has maximal assistance at home and understands that if he can't take care of himself and they will have to escalate care to a alf. CBC, CMP, troponin, lipase, UA, influenza negative. Chest x-ray with mild basilar congestion. CT head shows stable brain aneurysm. Prior to discharge, patient was resting comfortably in bed. Course of stay completely resolved. Patient wants to go home. Denies pain. Discussed physical exam and diagnostic tests with patient. Questions answered and patient is agreeable to discharge with close follow up with Primary Care Physician. Instructed to return to Emergency Department if symptoms worsen. - Lab Data Result diagrams: 06/12/16 16:52 06/12/16 16:52 Lab Results 06/12/16 06/12/16 06/12/16 Range/Units 16:52 16:52 16:52 WBC 6.6 (3.8-10.6) k/uL RBC 4.57 (4.30-5.90) m/uL Hgb 15.1 (13.0-17.5) gm/dL Hct 44.3 (39.0-53.0) % MCV 96.9 (80.0-100.0) fL MCH 33.0 (25.0-35.0) pg MCHC 34.1 (31.0-37.0) g/dL RDW 12.3 (11.5-15.5) % Plt Count 206 (150-450) k/uL Neutrophils % 67 % Lymphocytes % 21 % Monocytes % 6 % Eosinophils % 3 % Basophils % 0 % Neutrophils # 4.4 (1.3-7.7) k/uL Lymphocytes # 1.4 (1.0-4.8) k/uL Monocytes # 0.4 (0-1.0) k/uL Eosinophils # 0.2 (0-0.7) k/uL Basophils # 0.0 (0-0.2) k/uL Sodium 141 (137-145) mmol/L Potassium 4.0 (3.5-5.1) mmol/L Chloride 105 (98-107) mmol/L Carbon Dioxide 26 (22-30) mmol/L Anion Gap 10 mmol/L BUN 10 (9-20) mg/dL Creatinine 0.89 (0.66-1.25) mg/dL Est GFR (MDRD) Af Amer >60 (>60 ml/min/1.73 sqM) Est GFR (MDRD) Non-Af >60 (>60 ml/min/1.73 sqM) Glucose 95 (74-99) mg/dL Calcium 9.2 (8.4-10.2) mg/dL Magnesium 2.1 (1.6-2.3) mg/dL Total Bilirubin 0.7 (0.2-1.3) mg/dL AST 21 (17-59) U/L ALT 30 (21-72) U/L Alkaline Phosphatase 66 (38-126) U/L Troponin I <0.012 (0.000-0.034) ng/mL Total Protein 6.8 (6.3-8.2) g/dL Albumin 4.1 (3.5-5.0) g/dL Lipase 62 (23-300) U/L Urine Color Urine Appearance (Clear) Urine pH (5.0-8.0) Ur Specific [place] (1.001-1.035) Urine Protein (Negative) Urine Glucose (UA) (Negative) Urine Ketones (Negative) Urine Blood (Negative) Urine Nitrite (Negative) Urine Bilirubin (Negative) Urine Urobilinogen (<2.0) mg/dL Ur Leukocyte Esterase (Negative) Influenza Type A RNA (Not Detectd) Influenza Type B (PCR) (Not Detectd) 06/12/16 06/12/16 Range/Units 16:52 20:00 WBC (3.8-10.6) k/uL RBC (4.30-5.90) m/uL Hgb (13.0-17.5) gm/dL Hct (39.0-53.0) % MCV (80.0-100.0) fL MCH (25.0-35.0) pg MCHC (31.0-37.0) g/dL RDW (11.5-15.5) % Plt Count (150-450) k/uL Neutrophils % % Lymphocytes % % Monocytes % % Eosinophils % % Basophils % % Neutrophils # (1.3-7.7) k/uL Lymphocytes # (1.0-4.8) k/uL Monocytes # (0-1.0) k/uL Eosinophils # (0-0.7) k/uL Basophils # (0-0.2) k/uL Sodium (137-145) mmol/L Potassium (3.5-5.1) mmol/L Chloride (98-107) mmol/L Carbon Dioxide (22-30) mmol/L Anion Gap mmol/L BUN (9-20) mg/dL Creatinine (0.66-1.25) mg/dL Est GFR (MDRD) Af Amer (>60 ml/min/1.73 sqM) Est GFR (MDRD) Non-Af (>60 ml/min/1.73 sqM) Glucose (74-99) mg/dL Calcium (8.4-10.2) mg/dL Magnesium (1.6-2.3) mg/dL Total Bilirubin (0.2-1.3) mg/dL AST (17-59) U/L ALT (21-72) U/L Alkaline Phosphatase (38-126) U/L Troponin I (0.000-0.034) ng/mL Total Protein (6.3-8.2) g/dL Albumin (3.5-5.0) g/dL Lipase (23-300) U/L Urine Color Yellow Urine Appearance Clear (Clear) Urine pH 7.5 (5.0-8.0) Ur Specific [place] 1.009 (1.001-1.035) Urine Protein Negative (Negative) Urine Glucose (UA) Negative (Negative) Urine Ketones Trace H (Negative) Urine Blood Negative (Negative) Urine Nitrite Negative (Negative) Urine Bilirubin Negative (Negative) Urine Urobilinogen <2.0 (<2.0) mg/dL Ur Leukocyte Esterase Negative (Negative) Influenza Type A RNA Not Detected (Not Detectd) Influenza Type B (PCR) Not Detected (Not Detectd) Disposition Clinical Impression: Dizziness, Chest pain Disposition: HOME SELF-CARE Condition: Good Instructions: Dizziness (ED), Chest Pain (ED) Referrals: Geno House III, MD [Primary Care Provider] - 1-2 days
--- NOTE | 2016-06-12 20:08 | CT ---
EXAMINATION TYPE: CT brain wo con DATE OF EXAM: 06/12/2016 7:55 PM COMPARISON: 05/12/2016 HISTORY: WEAKNESS AND DIZZINESS. CT DLP: 1025.1 mGycm Automated exposure control for dose reduction was used. FINDINGS: There is cerebral cortical atrophy. There is mild hypodensity in the periventricular white matter. Th ere is no mass effect nor midline shift. There is no sign of intracranial hemorrhage. The calvarium i s intact. There is a 10 mm rounded high density mass in the midline at the superior aspect of the cir rick of [place] consistent with basilar tip aneurysm. IMPRESSION: Cerebral atrophy and mild chronic small vessel ischemia. 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 No acute intracranial abnormality. Chronic ethmoid sinusitis is noted.
[2016-06-12 20:13] LABS: Appearance,Urine Clear (Clear); Bilirubin,Urine Negative (Negative); Glucose,Urine (UA) Negative (Negative); Ketones,Urine Trace (Negative); Leukocyte Esterase,Urine Negative (Negative); Nitrite,Urine Negative (Negative); PH, Urine 7.5 (5.0-8.0); Protein,Urine Negative (Negative); Specific Gravity,Urine 1.009 (1.001-1.035); UA Billing (MACRO vs. MICRO) CHEM; Urobilinogen,Urine <2.0 mg/dL (<2.0)
[2016-06-12 20:41] VITALS: BP 169/91; PULSE 70; RESP 16; TEMP 97
== END 2016-06-12 20:40 | disposition home or self-care (01) ==
LOC: EC 16:04
DX: R42 Dizziness and giddiness (principal); R07.9 Chest pain, unspecified; I10 Essential (primary) hypertension; J44.9 Chronic obstructive pulmonary disease, unspecified; E78.5 Hyperlipidemia, unspecified; M19.90 Unspecified osteoarthritis, unspecified site; I67.1 Cerebral aneurysm, nonruptured; F17.200 Nicotine dependence, unspecified, uncomplicated; Z79.1 Long term (current) use of non-steroidal anti-inflammatories (NSAID); Z79.51 Long term (current) use of inhaled steroids; Z79.899 Other long term (current) drug therapy
CPT/HCPCS: 96374 ×2; 99285 ×2; 36415; 93005; 80053; 83690; 83735; 84484; 85025; 81003; 87502; 71010; 70450; J2060

== ENCOUNTER 2016-06-21 20:22 | Emergency (ER) | payer MEDICARE, OTHER ==
[2016-06-21] MEDS ORDERED: SODIUM CHLORIDE 0.9% 500 ML IV STA (20:32)
[2016-06-21 20:37] LABS: Glucose,Whole Blood 99 mg/dL (75-99)
[2016-06-21 20:39] VITALS: RESP 18
--- NOTE | 2016-06-21 20:39 | ED ---
General Adult HPI - General Source: RN notes reviewed <Paddy Rojas - Last Filed: 06/21/16 20:41> <Paddy Rangel - Last Filed: 06/21/16 22:41> - General Stated complaint: dizziness Time Seen by Provider: 06/21/16 20:22 - History of Present Illness Initial comments: This is a 70-year-old male who comes into the emergency department complaining that he is dizzy again. Patient states he gets dizzy and he doesn't feel like he can walk. His roommate called EMS at this point because he was afraid that he would not be able to help the patient enough at home. Patient has had this on multiple occasions and has been to the hospital on multiple occasions for the same. Patient denies any pain. Patient denies being dizzy at the moment. Patient states he only feels a little bit weak now at the moment. Patient denies any headache patient denies numbness weakness. Patient denies lightheadedness dizziness or near syncopal episode. Patient denies chest pain palpitations difficulty breathing shortness of breath. Patient denies any recent fever chills or cough. Patient denies abdominal pain patient denies nausea vomiting diarrhea (Paddy Rojas) - Related Data Home Medications Medication Instructions Recorded Confirmed Citalopram Hydrobromide 30 mg PO DAILY 05/12/16 06/21/16 Furosemide [Lasix] 20 mg PO DAILY 05/12/16 06/21/16 HYDROcodone/APAP 5-325MG [[place] 1 tab PO Q12H PRN 05/12/16 06/21/16 5-325] Meloxicam 15 mg PO DAILY 05/12/16 06/21/16 Nitroglycerin Sl Tabs [Nitrostat] 0.4 mg SUBLINGUAL Q5M PRN 05/12/16 06/21/16 Pregabalin [Lyrica] 75 mg PO BID 05/12/16 06/21/16 Simvastatin [Zocor] 40 mg PO HS 05/12/16 06/21/16 Tamsulosin HCl [Flomax] 0.4 mg PO DAILY 05/12/16 06/21/16 risperiDONE 2 mg PO HS 05/12/16 06/21/16 Fluticasone Nasal [place] [Flonase 2 spr EA NOSTRIL DAILY 06/12/16 06/21/16 Nasal [place]] Meclizine [Antivert] 12.5 mg PO BID PRN 06/12/16 06/21/16 Potassium Chloride ER [K-Dur 10] 10 meq PO DAILY 06/12/16 06/21/16 QUEtiapine [SEROquel] 50 mg PO HS 06/12/16 06/21/16 Solifenacin Succinate [Vesicare] 10 mg PO DAILY 06/12/16 06/21/16 risperiDONE [RisperDAL] 1 mg PO QAM 06/12/16 06/21/16 Allergies Allergy/AdvReac Type Severity Reaction Status Date / Time No Known Allergies Allergy Verified 06/21/16 20:39 Review of Systems ROS Other: All systems not noted in ROS Statement are negative. <Paddy Rojas - Last Filed: 06/21/16 20:41> ROS Other: All systems not noted in ROS Statement are negative. <Paddy Rangel - Last Filed: 06/21/16 22:41> ROS Statement: Those systems with pertinent positive or pertinent negative responses have been documented in the HPI. Past Medical History Past Medical History: COPD, Hyperlipidemia, Hypertension, Memory Impairment, Osteoarthritis (OA) Additional Past Medical History / Comment(s): Leaky coronary valves X3 History of Any Multi-Drug Resistant Organisms: None Reported Past Surgical History: Hernia Repair Past Anesthesia/Blood Transfusion Reactions: No Reported Reaction Past Psychological History: Anxiety Smoking Status: Current every day smoker Past Alcohol Use History: None Reported Past Drug Use History: None Reported - Past Family History Mother Family Medical History: Hypertension <Paddy Rojas - Last Filed: 06/21/16 20:41> General Exam <Paddy Rojas - Last Filed: 06/21/16 20:41> General appearance: alert, in no apparent distress Head exam: Present: atraumatic, normocephalic, normal inspection Eye exam: Present: normal appearance, PERRL, EOMI. Absent: scleral icterus, conjunctival injection, periorbital swelling ENT exam: Present: normal exam, mucous membranes moist Neck exam: Present: normal inspection. Absent: tenderness, meningismus, lymphadenopathy Respiratory exam: Present: normal lung sounds bilaterally. Absent: respiratory distress, wheezes, rales, rhonchi, stridor Cardiovascular Exam: Present: regular rate, normal rhythm, normal heart sounds. Absent: systolic murmur, diastolic murmur, rubs, gallop, clicks GI/Abdominal exam: Present: soft, normal bowel sounds. Absent: distended, tenderness, guarding, rebound, rigid Extremities exam: Present: normal inspection, full ROM, normal capillary refill. Absent: tenderness, pedal edema, joint swelling, calf tenderness Back exam: Present: normal inspection Neurological exam: Present: alert, oriented X3, CN II-XII intact Psychiatric exam: Present: normal affect, normal mood Skin exam: Present: warm, dry, intact, normal color. Absent: rash <Paddy Rangel - Last Filed: 06/21/16 22:41> - General Exam Comments Initial Comments: GENERAL: Patient is well-developed and well-nourished. Patient is nontoxic and well- hydrated and is in no acute distress. ENT: Neck is soft and supple. No significant lymphadenopathy is noted. Oropharynx is clear. Moist mucous membranes. Neck has full range of motion without eliciting any pain. EYES: The sclera were anicteric and conjunctiva were pink and moist. Extraocular movements were intact and pupils were equal round and reactive to light. Eyelids were unremarkable. PULMONARY: Unlabored respirations. Good breath sounds bilaterally. No audible rales rhonchi or wheezing was noted. CARDIOVASCULAR: There is a regular rate and rhythm without any murmurs gallops or rubs. ABDOMEN: Soft and nontender with normal bowel sounds. No palpable organomegaly was noted. There is no palpable pulsatile mass. SKIN: Skin is clear with no lesions or rashes and otherwise unremarkable. NEUROLOGIC: Patient is alert and oriented 2 however I do not know his baseline. Cranial nerves II through XII are grossly intact. Motor and sensory are also intact. Normal speech, volume and content. Symmetrical smile. Patient occasionally has a little tremor in his right arm which comes and goes MUSCULOSKELETAL: Normal extremities with adequate strength and full range of motion. No lower extremity swelling or edema. No calf tenderness. LYMPHATICS: No significant lymphadenopathy is noted (Paddy Rojas) No focal neurological deficit found on reexamination (Paddy Rangel) Course <Paddy Rojas - Last Filed: 06/21/16 20:41> <Paddy Rangel - Last Filed: 06/21/16 22:41> Vital Signs 06/21/16 06/21/16 20:36 22:25 Temperature 97.5 F L Pulse Rate 74 74 Respiratory 18 18 Rate Blood Pressure 166/93 144/89 O2 Sat by Pulse 99 96 Oximetry - Reevaluation(s) Reevaluation #1: 06/21/16 22:40 Patient dizziness improved with Antivert, able to ambulate without difficulty ( Paddy Rangel) Reevaluation #2: 06/21/16 22:40 Medical record including prior neurological workup is reviewed, nonsignificant ( Paddy Rangel) Medical Decision Making <Paddy Rojas - Last Filed: 06/21/16 20:41> - Lab Data Result diagrams: 06/21/16 20:30 06/21/16 20:30 - Radiology Data Radiology results: report reviewed (Chest x-ray is negative for acute disease), image reviewed <Paddy Rangel - Last Filed: 06/21/16 22:41> - Medical Decision Making EKG shows normal sinus rhythm at 70 bpm DE interval is 150 QRS is 70 QT interval 398 QTC is 435. Patient's EKG shows no ST segment elevation or depression or T wave abnormalities are noted. Dr. Rangel taking over care of this patient at 9 PM (Paddy Rojas) 70 male here with nonspecific dizziness. It without difficulty no neurological deficit noted, exam shows no cerebellar deficits in finger to nose or heel [place] , patient at this time feels improved and will be discharged home (Paddy Rangel) - Lab Data Lab Results 06/21/16 06/21/16 06/21/16 Range/Units 20:30 20:30 20:30 WBC 7.8 (3.8-10.6) k/uL RBC 4.52 (4.30-5.90) m/uL Hgb 15.2 (13.0-17.5) gm/dL Hct 43.5 (39.0-53.0) % MCV 96.2 (80.0-100.0) fL MCH 33.6 (25.0-35.0) pg MCHC 34.9 (31.0-37.0) g/dL RDW 12.3 (11.5-15.5) % Plt Count 224 (150-450) k/uL Neutrophils % 71 % Lymphocytes % 17 % Monocytes % 6 % Eosinophils % 3 % Basophils % 1 % Neutrophils # 5.6 (1.3-7.7) k/uL Lymphocytes # 1.3 (1.0-4.8) k/uL Monocytes # 0.5 (0-1.0) k/uL Eosinophils # 0.2 (0-0.7) k/uL Basophils # 0.0 (0-0.2) k/uL Sodium 139 (137-145) mmol/L Potassium 3.9 (3.5-5.1) mmol/L Chloride 105 (98-107) mmol/L Carbon Dioxide 25 (22-30) mmol/L Anion Gap 9 mmol/L BUN 9 (9-20) mg/dL Creatinine 0.79 (0.66-1.25) mg/dL Est GFR (MDRD) Af Amer >60 (>60 ml/min/1.73 sqM) Est GFR (MDRD) Non-Af >60 (>60 ml/min/1.73 sqM) Glucose 96 (74-99) mg/dL POC Glucose (mg/dL) (75-99) mg/dL POC Glu Hand Laminator ID Calcium 8.8 (8.4-10.2) mg/dL Total Bilirubin 0.7 (0.2-1.3) mg/dL AST 18 (17-59) U/L ALT 33 (21-72) U/L Alkaline Phosphatase 61 (38-126) U/L Total Creatine Kinase 105 (55-170) U/L CK-MB (CK-2) 1.4 (0.0-2.4) ng/mL CK-MB (CK-2) Rel Index 1.3 Troponin I 0.013 (0.000-0.034) ng/mL Total Protein 6.7 (6.3-8.2) g/dL Albumin 4.1 (3.5-5.0) g/dL Urine Color Urine Appearance (Clear) Urine pH (5.0-8.0) Ur Specific [place] (1.001-1.035) Urine Protein (Negative) Urine Glucose (UA) (Negative) Urine Ketones (Negative) Urine Blood (Negative) Urine Nitrite (Negative) Urine Bilirubin (Negative) Urine Urobilinogen (<2.0) mg/dL Ur Leukocyte Esterase (Negative) Urine RBC (0-5) /hpf Ur Squamous Epith Cells (0-4) /hpf 06/21/16 06/21/16 Range/Units 20:34 22:20 WBC (3.8-10.6) k/uL RBC (4.30-5.90) m/uL Hgb (13.0-17.5) gm/dL Hct (39.0-53.0) % MCV (80.0-100.0) fL MCH (25.0-35.0) pg MCHC (31.0-37.0) g/dL RDW (11.5-15.5) % Plt Count (150-450) k/uL Neutrophils % % Lymphocytes % % Monocytes % % Eosinophils % % Basophils % % Neutrophils # (1.3-7.7) k/uL Lymphocytes # (1.0-4.8) k/uL Monocytes # (0-1.0) k/uL Eosinophils # (0-0.7) k/uL Basophils # (0-0.2) k/uL Sodium (137-145) mmol/L Potassium (3.5-5.1) mmol/L Chloride (98-107) mmol/L Carbon Dioxide (22-30) mmol/L Anion Gap mmol/L BUN (9-20) mg/dL Creatinine (0.66-1.25) mg/dL Est GFR (MDRD) Af Amer (>60 ml/min/1.73 sqM) Est GFR (MDRD) Non-Af (>60 ml/min/1.73 sqM) Glucose (74-99) mg/dL POC Glucose (mg/dL) 99 (75-99) mg/dL POC Glu Hand Laminator ID Anibal Reid Calcium (8.4-10.2) mg/dL Total Bilirubin (0.2-1.3) mg/dL AST (17-59) U/L ALT (21-72) U/L Alkaline Phosphatase (38-126) U/L Total Creatine Kinase (55-170) U/L CK-MB (CK-2) (0.0-2.4) ng/mL CK-MB (CK-2) Rel Index Troponin I (0.000-0.034) ng/mL Total Protein (6.3-8.2) g/dL Albumin (3.5-5.0) g/dL Urine Color Yellow Urine Appearance Clear (Clear) Urine pH 7.0 (5.0-8.0) Ur Specific [place] 1.008 (1.001-1.035) Urine Protein Negative (Negative) Urine Glucose (UA) Negative (Negative) Urine Ketones 1+ H (Negative) Urine Blood Negative (Negative) Urine Nitrite Negative (Negative) Urine Bilirubin Negative (Negative) Urine Urobilinogen <2.0 (<2.0) mg/dL Ur Leukocyte Esterase Trace H (Negative) Urine RBC 1 (0-5) /hpf Ur Squamous Epith Cells <1 (0-4) /hpf Disposition <Paddy Rojas - Last Filed: 06/21/16 20:41> <Paddy Rangel - Last Filed: 06/21/16 22:41> Clinical Impression: Vertigo, Dizziness Disposition: HOME SELF-CARE Condition: Good Instructions: Dizziness (ED) Referrals: Geno House III, MD [Primary Care Provider] - 1-2 days
[2016-06-21 20:47] LABS: Basophils % (A) 1 %; CH 34.1; CHCM 35.6; Eosinophils # (A) 0.2 k/uL (0-0.7); Eosinophils % (A) 3 %; HCT 43.5 % (39.0-53.0); HDW 2.46; HGB 15.2 gm/dL (13.0-17.5); Luc # (Auto) 0.18; Luc % (Auto) 2; Lymphocytes # (A) 1.3 k/uL (1.0-4.8); Lymphocytes % (A) 17 %; MCH 33.6 pg (25.0-35.0); MCHC 34.9 g/dL (31.0-37.0); MCV 96.2 fL (80.0-100.0); Mean Platelet Volume 6.7; Monocytes # (A) 0.5 k/uL (0-1.0); Monocytes % (A) 6 %; Neutrophils # (A) 5.6 k/uL (1.3-7.7); Neutrophils % (A) 71 %; RBC 4.52 m/uL (4.30-5.90); RDW 12.3 % (11.5-15.5); WBC 7.8 k/uL (3.8-10.6); WBC (Perox) 7.64
[2016-06-21 20:56] LABS: ALT 33 U/L (21-72); AST 18 U/L (17-59); Alkaline Phosphatase 61 U/L (38-126); Anion Gap 9 mmol/L; Blood Urea Nitrogen 9 mg/dL (9-20); Calcium 8.8 mg/dL (8.4-10.2); Carbon Dioxide 25 mmol/L (22-30); Chloride 105 mmol/L (98-107); Glucose 96 mg/dL (74-99); Non-African American GFR(MDRD) >60 (>60 ml/min/1.73 sqM); Potassium 3.9 mmol/L (3.5-5.1); Sodium 139 mmol/L (137-145); Total Bilirubin 0.7 mg/dL (0.2-1.3); Total Protein 6.7 g/dL (6.3-8.2)
--- NOTE | 2016-06-21 21:19 | XR ---
EXAMINATION TYPE: XR chest 2V DATE OF EXAM: 06/21/2016 8:50 PM COMPARISON: Prior chest x-ray June 12, 2016. HISTORY: History of COPD and hypertension presents with weakness. TECHNIQUE: Frontal and lateral views of the chest are obtained. FINDINGS: There is chronic emphysematous change without suspicious new focal air space opacity, pleu ral effusion, or pneumothorax seen. The cardiac silhouette size is within normal limits. Bilateral hilar prominence raises concern for underlying pulmonary artery hypertension. The osseous structures are somewhat demineralized. IMPRESSION: Chronic emphysematous change without acute pulmonary process.
[2016-06-21 21:28] LABS: Creatine Kinase MB 1.4 ng/mL (0.0-2.4); Troponin I 0.013 ng/mL (0.000-0.034)
[2016-06-21] MEDS ORDERED: MECLIZINE 12.5 MG TAB PO STA (21:34)
[2016-06-21 22:35] LABS: Appearance,Urine Clear (Clear); Bilirubin,Urine Negative (Negative); Glucose,Urine (UA) Negative (Negative); Ketones,Urine 1+ (Negative); Leukocyte Esterase,Urine Trace (Negative); Nitrite,Urine Negative (Negative); Particle Count 1535; Protein,Urine Negative (Negative); RBC,Urine 1 /hpf (0-5); Specific Gravity,Urine 1.008 (1.001-1.035); Squamous Epithelial Cell,Urine <1 /hpf (0-4); UA Billing (MACRO vs. MICRO) MICRO; Urobilinogen,Urine <2.0 mg/dL (<2.0)
[2016-06-21 23:02] VITALS: BP 156/95; PULSE 79; TEMP 97.6
== END 2016-06-21 23:00 | disposition home or self-care (01) ==
LOC: EC 20:22
DX: R42 Dizziness and giddiness (principal); E78.5 Hyperlipidemia, unspecified; I10 Essential (primary) hypertension; M19.90 Unspecified osteoarthritis, unspecified site; F41.9 Anxiety disorder, unspecified; F17.200 Nicotine dependence, unspecified, uncomplicated; J44.9 Chronic obstructive pulmonary disease, unspecified; Z79.899 Other long term (current) drug therapy; Z79.51 Long term (current) use of inhaled steroids
CPT/HCPCS: 36415; 71020; 80053; 81001; 82550; 82553; 84484; 85025; 93005; 96360; 96361; 99285

== ENCOUNTER 2017-10-31 10:05 | Day surgery (SDC) | payer MEDICARE, OTHER ==
[2017-10-23 11:05] VITALS: BMI 27.9
[~2017-10-31 10:05] MED LIST: DEXAMETHASONE SOD PHOSPHATE 10 MG/ML 1 ML VIAL IV ONE; DEXAMETHASONE SOD PHOSPHATE 4 MG/ML 1 ML VIAL IV ONE; HYDROmorphone 0.5 MG/0.5 ML SYRINGE IVP PRN; LACTATED RINGERS 1,000 ML IV SCH; LIDOCAINE 1% 20 ML VIAL (10MG/ML) FOR IV START INTRADERMA PRN; MIDAZOLAM 2 MG/2 ML VIAL IV PRN; ONDANSETRON 4 MG/2 ML VIAL IVP ONE; ceFAZolin 1,000 MG in DEXTROSE/WATER 1 50ML.BAG IV ONE; fentaNYL (PF) 50 MCG/ML 2 ML AMP IV PRN
[2017-10-31] MEDS: OXYMETAZOLINE 0.05% NASL SPRAY 1 SPRAY BOTTLE NASAL ONE ×4 (10:50→11:05)
[2017-10-31 11:25] LABS: Glucose,Whole Blood 116 mg/dL (75-99)
[2017-10-31] MEDS ORDERED: FAMOTIDINE 20 MG/2 ML VIAL IVP ONE (11:29)
[2017-10-31] MEDS ORDERED: DEXAMETHASONE SOD PHOS (MDV) 100 MG/10 ML VIAL ONE (12:24)
[2017-10-31] MEDS ORDERED: LIDOCAINE 1% INJ 10MG/ML (20 ML MDV) ONE (12:24)
[2017-10-31] MEDS ORDERED: PROPOFOL 10 MG/ML 20 ML VIAL IV ONE (12:24)
[2017-10-31] MEDS ORDERED: fentaNYL (PF) 50 MCG/ML 2 ML AMP ONE (12:24)
[2017-10-31] MEDS ORDERED: MIDAZOLAM 2 MG/2 ML VIAL ONE (12:24)
[2017-10-31] MEDS ORDERED: ePHEDrine SULFATE/0.9% NACL/PF 50 MG/5 ML SYRINGE IV ONE (12:24)
[2017-10-31] MEDS ORDERED: SUCCINYLCHOLINE CHLORIDE VIAL 200 MG/10 ML VIAL IV ONE (12:24)
[2017-10-31] MEDS ORDERED: BACITRACIN 500 UNIT/GM OINT 28.4 GM TUBE TOPICAL ONE (12:58)
[2017-10-31] MEDS ORDERED: LIDOCAINE 1%-EPI 1:100,000 20 ML VIAL SQ ONE (12:58)
--- NOTE | 2017-10-31 13:46 | P.OP ---
Date of Procedure: 10/31/17 Preoperative Diagnosis: Deviated nasal septum Inferior turbinate hypertrophy Chronic sinusitis Sinonasal polyposis Postoperative Diagnosis: Same Procedure(s) Performed: Septoplasty Outfracture and submucous resection of the inferior turbinates Bilateral endoscopic sinus surgery including polypectomies including bilateral maxillary antrostomy with removal of tissue from the maxillary sinuses, bilateral anterior and posterior ethmoidectomy, bilateral frontal and sphenoid sinusotomy including balloon sinus plasty and exploration of the sinuses and removal of tissue from the frontal and sphenoid sinuses Anesthesia: GRACIELAA Surgeon: Gopal Dickey Estimated Blood Loss (ml): 10 Pathology: other (Nasal septal bone and cartilage and sinus contents) Condition: stable Disposition: PACU Indications for Procedure: This 72-year-old white male with chronic nasal congestion and nasal airway obstruction as well as recurrent sinusitis. He has deviation of the nasal septum and inferior turbinate hypertrophy and sinonasal polyps including pansinusitis on computed tomography scan Operative Findings: Nasal septum deviated to the right, inferior turbinate hypertrophy bilateral, bilateral diffuse sinonasal polyps in the middle meatus, ethmoids sphenoid and frontal sinuses Description of Procedure: The patient was brought in the operative suite and placed in a supine position. The patient underwent induction of general anesthesia with oral endotracheal intubation without difficulty. The patient was prepped and draped in usual aseptic fashion. The orbits were in the operating field for monitoring throughout the case computed tomography scan as well as on the computer for review throughout the case. 1% lidocaine with 1-100,000 epinephrine was infused submucosally both sides nasal septum and lateral nasal lopes bilaterally. While this was taking vasoconstrictive effect the inferior turbinates were infractured with [place] elevator partial submucous resection inferior turbinates performed with Coblation device therefore ablating a portion of the submucosal soft tissue and then outfractured with the [place] elevator. A left hemitransfixion incision was made with the nuchal perichondrial mucoperiosteal flap on the left elevated. The bony cartilaginous junction was disarticulated and the mucoperiosteal flap on the right was elevated. The bony nasal septal deformities were removed with Celeste forceps and an inferior cartilaginous strip was removed leaving a full 1.5 cm caudal strut. Checking intranasally this corrected the nasoseptal deformities and the hemitransfixion incision was closed with a running 4-0 chromic suture. Full 0 endoscopic evaluation performed bilaterally. Beginning on the left gross polyps were debrided from the middle meatus with microdebrider maxillary antrostomy was then performed taking care anteriorly not to injure the lacrimal bone as well as infundibulotomy and uncinectomy with the microdebrider. Maxillary sinus was evaluated a 30 endoscope and the polyps were removed with microdebrider and curved suction. Anterior and posterior ethmoidectomy was then performed from anterior posterior level skull base with the anterior ethmoid air cells cleaned from posterior to anterior. Frontal and sphenoid sinusotomy was then performed with exploration the sinuses and removal of small polyps from the sinuses. Once this completed attention was turned to the right where the procedure was followed as they were on the left including infundibulotomy uncinectomy maxillary antrostomy medialization middle turbinate removed tissue from the maxillary sinus anterior posterior ethmoidectomy frontal and the adenoid sinusotomy with exploration and. Once this completed standard nasal pore nasal dressings were placed in the middle meatus and direct visual and bilateral [place] airway splints coated bacitracin ointment were placed cavities and sutured trans-septally with a 4-0 nylon. Patient was allowed to emerge from general anesthesia and was excised in the operating suite and transferred to the postop recovery area in satisfactory condition.
[2017-10-31 13:54] VITALS: RESP 16; TEMP 97
[2017-10-31] MEDS: LABETALOL SYRINGE 5 MG/ML IVP ONE ×2 (14:08→14:22)
[2017-10-31 15:01] VITALS: PULSE 77
[2017-10-31 15:17] VITALS: BP 151/82
== END 2017-10-31 15:35 | disposition home or self-care (01) ==
LOC: OR 10:05
PROVIDERS: ATTEND Otolaryngology
DX: J32.4 Chronic pansinusitis (principal); J34.2 Deviated nasal septum; J34.3 Hypertrophy of nasal turbinates; J33.8 Other polyp of sinus; I10 Essential (primary) hypertension; I67.1 Cerebral aneurysm, nonruptured; F03.90 Unspecified dementia, unspecified severity, without behavioral disturbance, psychotic disturbance, mood disturbance, and anxiety; N40.0 Benign prostatic hyperplasia without lower urinary tract symptoms; F17.210 Nicotine dependence, cigarettes, uncomplicated; F32.9 Major depressive disorder, single episode, unspecified; J44.9 Chronic obstructive pulmonary disease, unspecified; Z79.891 Long term (current) use of opiate analgesic; Z79.51 Long term (current) use of inhaled steroids; Z79.899 Other long term (current) drug therapy; Z79.52 Long term (current) use of systemic steroids
CPT/HCPCS: 88305; 88300; 30520; 31267; 31259; 31253; 30140; C1726; J2250; J0330; J1100 ×2; J2405; J2001; J3010; J2704

== ENCOUNTER → 2020-03-22 | Outpatient (CLI) | payer MEDICARE, OTHER ==
--- NOTE | 2020-03-22 15:10 | MR ---
EXAMINATION TYPE: MR angio head wo con DATE OF EXAM: 03/22/2020 COMPARISON: CT angiogram 05/12/2016 HISTORY: Nonruptured cerebral aneurysm TECHNIQUE: Time of flight images focusing on the [place] were performed without contrast. Th ree-dimensional reconstructions performed on an alternate workstation. 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 There is no evide nt dissection, thrombus, or embolus. Vertebral arteries are patent. Anterior circulation is patent. 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
== END | disposition home or self-care (01) ==
LOC: RADMRIMAIN 09:41
PROVIDERS: ATTEND Neurological Surgery
DX: I72.5 Aneurysm of other precerebral arteries (principal)
CPT/HCPCS: 70544

== ENCOUNTER → 2020-07-08 | Outpatient (CLI) | payer MEDICARE, OTHER ==
[2020-07-08 20:19] LABS: Basophils # (A) 0.04 X 10*3/uL (0.00-0.10); Basophils % (A) 0.5 %; Eosinophils % (A) 3.7 %; HCT 45.8 % (39.6-50.0); HGB 14.8 g/dL (13.0-17.0); Lymphocytes # (A) 1.74 X 10*3/uL (0.90-5.00); Lymphocytes % (A) 21.4 %; MCH 33.3 pg (27.0-32.0); MCHC 32.3 g/dL (32.0-37.0); MCV 102.9 fL (80.0-97.0); Mean Platelet Volume 10.2 fL (9.5-12.2); Monocytes # (A) 0.79 X 10*3/uL (0.20-1.00); Monocytes % (A) 9.7 %; Neutrophils # (A) 5.21 X 10*3/uL (1.80-7.70); Neutrophils % (A) 64.2 %; Platelet Count 226 X 10*3/uL (140-440); RBC 4.45 X 10*6/uL (4.40-5.60); RDW 12.4 % (11.5-14.5); WBC 8.12 X 10*3/uL (4.50-10.00)
[2020-07-08 21:54] LABS: African American GFR (CKD) 96.5 (60.0-200.0); Anion Gap 6.9 mmol/L (4.00-12.00); BUN/Creat Ratio 14.44 Ratio (12.00-20.00); Calcium 9.4 mg/dL (8.7-10.3); Carbon Dioxide 27.1 mmol/L (21.6-31.8); Non-African American GFR(CKD) 83.3 (60.0-200.0); Potassium 4.9 mmol/L (3.5-5.5)
[2020-07-09 10:24] LABS: Partial Thromboplastin Time 33.6 sec (23.5-31.0); Prothrombin Time 10.9 sec (9.9-11.9)
== END | disposition home or self-care (01) ==
LOC: LABWHC1 10:25
PROVIDERS: ATTEND Neurological Surgery
DX: Z20.822 Contact with and (suspected) exposure to COVID-19 (principal); I67.1 Cerebral aneurysm, nonruptured
CPT/HCPCS: 80048; 85025; 85610; 85730; 36415; U0003; C9803; U0005

== ENCOUNTER 2022-02-07 15:26 | Emergency (ER) | payer MEDICARE, OTHER ==
[2022-02-07 15:39] VITALS: TEMP 98.4
[2022-02-07 15:57] VITALS: RESP 18
--- NOTE | 2022-02-07 16:28 | XR ---
EXAMINATION TYPE: XR abdomen 2V DATE OF EXAM: 02/07/2022 CLINICAL HISTORY: Constipation for 8 days. Pain. TECHNIQUE: Supine and upright views of the abdomen are obtained. COMPARISON: None. FINDINGS: Scattered gas is seen in non-distended small bowel loops. Gas and fecal material is seen in non-distended colon. Fairly moderate diffuse colonic fecal prominence. Scattered bilateral pelvic phleboliths. No free air. The lung bases are clear and the osseous structures are intact. IMPRESSION: Overall nonobstructive bowel gas pattern. Moderate diffuse colonic fecal stasis is prese nt.
[2022-02-07 17:24] VITALS: BP 143/81; PULSE 63
--- NOTE | 2022-02-07 17:56 | ED ---
Abdominal Pain HPI - General Chief Complaint: Abdominal Pain Stated Complaint: constipation Time Seen by Provider: 02/07/22 15:30 Source: EMS Mode of arrival: EMS Limitations: no limitations - History of Present Illness Initial Comments: Patient complains of constipation. He has no belly pain. He has no back pain. He has no chest pain. He has no fevers or chills. He has no weakness or lightheadedness. He tolerates oral intake. - Related Data Home Medications Medication Instructions Recorded Confirmed Citalopram Hydrobromide 20 mg PO DAILY 05/12/16 10/31/17 [Citalopram HBr] Furosemide [Lasix] 20 mg PO DAILY 05/12/16 10/31/17 HYDROcodone/APAP 5-325MG [[place] 1 tab PO Q8H 05/12/16 10/31/17 5-325] Nitroglycerin Sl Tabs [Nitrostat] 0.4 mg SUBLINGUAL Q5M PRN 05/12/16 10/31/17 Simvastatin [Zocor] 40 mg PO HS 05/12/16 10/31/17 Tamsulosin HCl [Flomax] 0.4 mg PO DAILY 05/12/16 10/31/17 Fluticasone Nasal [place] [Flonase 2 spr EA NOSTRIL DAILY 06/12/16 10/31/17 Nasal [place]] Meclizine [Antivert] 12.5 mg PO TID 06/12/16 10/31/17 QUEtiapine [SEROquel] 100 mg PO HS 06/12/16 10/31/17 Artificial Tears-Hypromellose 1 drops BOTH EYES Q6H PRN 10/23/17 10/31/17 [Artificial Tear Drops] Cyanocobalamin (Vitamin B-12) 1,000 mcg PO DAILY 10/23/17 10/31/17 [Vitamin B-12] Fexofenadine HCl [[place]anny Allergy] 180 mg PO DAILY 10/23/17 10/31/17 Hyoscyamine Sulfate [Levsin] 0.125 mg PO Q4H PRN 10/23/17 10/31/17 Ipratropium-Albuterol Nebulize 3 ml INHALATION Q8H PRN 10/23/17 10/31/17 [Duoneb 0.5 mg-3 mg/3 ml Soln] Loperamide HCl [Imodium A-D] 2 tab PO Q8H PRN 10/23/17 10/31/17 Loratadine [Claritin] 10 mg PO DAILY 10/23/17 10/31/17 Meloxicam [Mobic] 15 mg PO DAILY PRN 10/23/17 10/31/17 Morphine Sulfate [Morphine Sulfate 0.25 ml PO Q1H PRN 10/23/17 10/31/17 Oral Soln Conc (20 MG/ML)] Pregabalin [Lyrica] 75 mg PO TID 10/23/17 10/31/17 Sennosides [Senna] 8.6 mg PO Q12H PRN 10/23/17 10/31/17 Sodium Chloride [[place]] 1 spray EA NOSTRIL Q6H PRN 10/23/17 10/31/17 Allergies Allergy/AdvReac Type Severity Reaction Status Date / Time No Known Allergies Allergy Verified 10/31/17 11:19 Review of Systems ROS Statement: Those systems with pertinent positive or pertinent negative responses have been documented in the HPI. ROS Other: All systems not noted in ROS Statement are negative. Past Medical History Past Medical History: COPD, Hyperlipidemia, Hypertension, Memory Impairment, Osteoarthritis (OA) Additional Past Medical History / Comment(s): Leaky coronary valves X3, chronic pain, muscle weakness History of Any Multi-Drug Resistant Organisms: None Reported Past Surgical History: Hernia Repair Past Anesthesia/Blood Transfusion Reactions: Unable to Obtain Past Psychological History: Anxiety Smoking Status: Current every day smoker Past Alcohol Use History: None Reported Past Drug Use History: None Reported - Past Family History Mother Family Medical History: Hypertension General Exam Limitations: no limitations General appearance: alert, in no apparent distress Head exam: Present: atraumatic, normocephalic, normal inspection Eye exam: Present: normal appearance, PERRL, EOMI. Absent: scleral icterus, conjunctival injection, periorbital swelling ENT exam: Present: normal exam, mucous membranes moist Neck exam: Present: normal inspection. Absent: tenderness, meningismus, l ymphadenopathy Respiratory exam: Present: normal lung sounds bilaterally. Absent: respiratory distress, wheezes, rales, rhonchi, stridor Cardiovascular Exam: Present: regular rate, normal rhythm, normal heart sounds. Absent: systolic murmur, diastolic murmur, rubs, gallop, clicks GI/Abdominal exam: Present: soft, normal bowel sounds. Absent: distended, tenderness, guarding, rebound, rigid Extremities exam: Present: normal inspection, full ROM, normal capillary refill. Absent: tenderness, pedal edema, joint swelling, calf tenderness Back exam: Present: normal inspection Neurological exam: Present: alert, oriented X3, CN II-XII intact Psychiatric exam: Present: normal affect, normal mood Skin exam: Present: warm, dry, intact, normal color. Absent: rash Course Vital Signs 02/07/22 15:28 Temperature 98.4 F Pulse Rate 63 Respiratory 18 Rate Blood Pressure 143/81 O2 Sat by Pulse 99 Oximetry Medical Decision Making - Medical Decision Making Patient complains of constipation. X-ray shows no obstruction or free air. Patient was given an enema. He has had resolution of his symptoms. He is stable for discharge. Disposition Clinical Impression: Constipation Disposition: HOME SELF-CARE Condition: Good Is patient prescribed a controlled substance at d/c from ED?: No Referrals: Moses Bruno MD [Primary Care Provider] - 1-2 days Kelley Morataya MD [STAFF PHYSICIAN] - 1-2 days
== END 2022-02-07 20:07 | disposition home or self-care (01) ==
LOC: EEVIPCON 15:26 → EC 15:26
DX: K59.00 Constipation, unspecified (principal); J44.9 Chronic obstructive pulmonary disease, unspecified; E78.5 Hyperlipidemia, unspecified; I10 Essential (primary) hypertension; M19.90 Unspecified osteoarthritis, unspecified site; F41.9 Anxiety disorder, unspecified; F17.200 Nicotine dependence, unspecified, uncomplicated; Z79.899 Other long term (current) drug therapy
CPT/HCPCS: 74019; 99284

== ENCOUNTER 2023-02-25 10:48 | Emergency (ER) | payer MEDICARE, OTHER ==
[2023-02-25] MEDS ORDERED: SODIUM CHLORIDE 0.9% 500 ML 500 ML IV ONE (10:54)
[2023-02-25] MEDS ORDERED: IPRATROPIUM-ALBUTEROL 3 ML NEB INHALATION STA (10:56)
--- NOTE | 2023-02-25 10:59 | ED ---
General Adult HPI - General Source: patient, RN notes reviewed, old records reviewed <Paddy Rojas - Last Filed: 02/25/23 16:20> <Dm Jimenez - Last Filed: 02/25/23 17:21> - General Stated complaint: Altered mental status Time Seen by Provider: 02/25/23 10:50 - History of Present Illness Initial comments: This is a 77-year-old male who is brought in by EMS for altered mental status. According to staff at the adult foster care patient is normally alert and oriented 3 and does have a guardian. Patient comes in because he started acting different as of today. Patient has been confused and is all of a sudden he incontinent of urine. Patient does have a mass in his head that they state is being worked up. Patient has had this mass for about 3 weeks now. Mass on the right side of the forehead. Patient is poor historian because he is alert and oriented 1 at this time. Patient denies any pain patient denies any problems at this time. No one is with the patient give any further history (Paddy Rojas) - Related Data Home Medications Medication Instructions Recorded Confirmed Citalopram Hydrobromide 20 mg PO DAILY 05/12/16 02/25/23 [Citalopram HBr] Tamsulosin HCl [Flomax] 0.8 mg PO DAILY 05/12/16 02/25/23 Fluticasone Nasal [place] [Flonase 1 spr EA NOSTRIL DAILY PRN 06/12/16 02/25/23 Nasal [place]] Albuterol Sulfate [Albuterol 2 puff INHALATION RT-Q6H PRN 02/25/23 02/25/23 Sulfate Hfa] Aspirin EC [Ecotrin] 325 mg PO DAILY 02/25/23 02/25/23 Clopidogrel [Plavix] 75 mg PO DAILY 02/25/23 02/25/23 QUEtiapine FUMARATE [SEROquel] 25 mg PO HS 02/25/23 02/25/23 QUEtiapine [SEROquel] 100 mg PO HS 02/25/23 02/25/23 Simvastatin [Zocor] 10 mg PO HS 02/25/23 02/25/23 Allergies Allergy/AdvReac Type Severity Reaction Status Date / Time No Known Allergies Allergy Verified 02/25/23 16:31 Review of Systems ROS Other: All systems not noted in ROS Statement are negative. <Paddy Rojas - Last Filed: 02/25/23 16:20> ROS Other: All systems not noted in ROS Statement are negative. <Dm Jimenez - Last Filed: 02/25/23 17:21> ROS Statement: Those systems with pertinent positive or pertinent negative responses have been documented in the HPI. Past Medical History Past Medical History: COPD, Hyperlipidemia, Hypertension, Memory Impairment, Osteoarthritis (OA) Additional Past Medical History / Comment(s): Leaky coronary valves X3, chronic pain, muscle weakness History of Any Multi-Drug Resistant Organisms: None Reported Past Surgical History: Hernia Repair Past Anesthesia/Blood Transfusion Reactions: Unable to Obtain Past Psychological History: Anxiety Smoking Status: Current every day smoker Past Alcohol Use History: None Reported Past Drug Use History: None Reported - Past Family History Mother Family Medical History: Hypertension <Paddy Rojas - Last Filed: 02/25/23 16:20> General Exam <Paddy Rojas - Last Filed: 02/25/23 16:20> - General Exam Comments Initial Comments: GENERAL: Patient is well-developed and well-nourished. Patient is nontoxic and well- hydrated and is in no acute distress. ENT: Neck is soft and supple. No significant lymphadenopathy is noted. Oropharynx is clear. Moist mucous membranes. Neck has full range of motion without eliciting any pain. EYES: The sclera were anicteric and conjunctiva were pink and moist. Extraocular movements were intact and pupils were equal round and reactive to light. Eyelids were unremarkable. PULMONARY: Unlabored respirations. Good breath sounds bilaterally. Patient has slight expiratory wheezing CARDIOVASCULAR: There is a regular rate and rhythm without any murmurs gallops or rubs. ABDOMEN: Soft and nontender with normal bowel sounds. SKIN: Skin is clear with no lesions or rashes and otherwise unremarkable. NEUROLOGIC: Patient is alert and oriented 1. Cranial nerves II through XII are grossly intact. Motor and sensory are also intact. Normal speech, volume and content. Symmetrical smile. MUSCULOSKELETAL: Normal extremities with adequate strength and full range of motion. LYMPHATICS: No significant lymphadenopathy is noted PSYCHIATRIC: Normal psychiatric evaluation. (Paddy Rojas) Course <Dm Jimenez - Last Filed: 02/25/23 17:21> Vital Signs 02/25/23 02/25/23 02/25/23 10:52 11:14 11:43 Temperature 97.0 F L 97.7 F Pulse Rate 67 62 59 L Respiratory 18 18 Rate Blood Pressure 109/76 105/55 O2 Sat by Pulse 100 98 Oximetry 02/25/23 02/25/23 11:57 13:00 Temperature Pulse Rate 59 L 60 Respiratory 18 Rate Blood Pressure 106/58 O2 Sat by Pulse 98 Oximetry - Reevaluation(s) Reevaluation #1: 02/25/23 17:05 Case was discussed with [facility] neurosurgeon Dr. Cespedes. She recommends ER to ER transfer and admission to the medical service. She has no further recommendations at this time. Case was then discussed with [facility] ED physician Dr. York who accepts ambulance transfer to the [facility] ED. He has no further recommendations at this time. (Dm Jimenez) Medical Decision Making - Lab Data Result diagrams: 02/25/23 11:07 02/25/23 11:07 <Paddy Rojas - Last Filed: 02/25/23 16:20> - Lab Data Result diagrams: 02/25/23 11:07 02/25/23 11:07 <Dm Jimenez - Last Filed: 02/25/23 17:21> - Medical Decision Making EKG is interpreted by myself. EKG shows a sinus rhythm at 69 bpm ND interval 138 uracil 102 QT interval is 412 QTC is 419. Patient's EKG is of poor quality but no obvious ST segment elevation is noted Was pt. sent in by a medical professional or institution (, PA, MOLDED GOODS CONTROLS OPERATOR, urgent care, hospital, or senior care...) When possible be specific @ -Patient was sent in by the adult foster care Did you speak to anyone other than the patient for history (EMS, parent, family, police, friend...)? What history was obtained from this source @ -All the history came from EMS Did you review nursing and triage notes (agree or disagree)? Why? @ -[I reviewed and agree with nursing and triage notes] Were old charts reviewed (outside hosp., previous admission, EMS record, old EKG, old radiological studies, urgent care reports/EKG's, senior care records)? Report findings @ -I reviewed prior chart from prior labwork on this patient Differential Diagnosis (chest pain, altered mental status, abdominal pain women, abdominal pain men, vaginal bleeding, weakness, fever, dyspnea, syncope, headache, dizziness, GI bleed, back pain, seizure, CVA, palpatations, mental health, musculoskeletal)? @ -Differential Altered Mental Status: Hypoglycemia, DKA, hypercapnia, ETOH, overdose, CO poisoning, trauma, myxedema coma, HTN encephalopathy, infection, encephalitis, psychosis, intercranial hemorrhage, hepatic encephalopathy, meningitis, CVA, this is not meant to be an all-inclusive list EKG interpreted by me (3pts min.). @ -[As above] X-rays interpreted by me (1pt min.). @ -Chest x-ray showed a lung mass on the right side CT interpreted by me (1pt min.). @ -CT of the brain showed prominent soft tissue swelling over the right frontal region a curvilinear collection which appears to be a lytic lesion in the calvarium with slightly hyperdense component consistent with subdural area minimal mass effect U/S interpreted by me (1pt. min.). @ -[None done] What testing was considered but not performed or refused? (CT, X-rays, U/S, labs)? Why? @ -[None] What meds were considered but not given or refused? Why? @ -[None] Did you discuss the management of the patient with other professionals (professionals i.e. , PA, MOLDED GOODS CONTROLS OPERATOR, lab, RT, psych nurse, medical social worker, adjustment examiner, teacher, correction officer city or county jail, transplant case manager)? Give summary @ -I spoke with the radiologist about the CAT scan results Was smoking cessation discussed for >3mins.? @ -[No] Was critical care preformed (if so, how long)? @ -[No] Were there social determinants of health that impacted care today? How? (Homelessness, low income, unemployed, alcoholism, drug addiction, transportation, low edu. Level, literacy, decrease access to med. care, detention, rehab)? @ -[No] Was there de-escalation of care discussed even if they declined (Discuss DNR or withdrawal of care, Hospice)? DNR status @ -[No] What co-morbidities impacted this encounter? (DM, HTN, Smoking, COPD, CAD, Cancer, CVA, ARF, Chemo, Hep., AIDS, mental health diagnosis, sleep apnea, morbid obesity)? @ -[None] Was patient admitted / discharged? Hospital course, mention meds given and route, prescriptions, significant lab abnormalities, going to OR and other pertinent info. @ -he was without complaint throughout his ED stay. He did however remain alert and oriented 1 only. I spoke the radiologist and he believes the missing hard of the skull was secondary to a lytic lesion from probably the lung cancer. I signed the patient out to Dr. jimenez at 4 PM (Paddy Rojas) Was patient admitted / discharged? Hospital course, mention meds given and route, prescriptions, significant lab abnormalities, going to OR and other ertinent info. @ -[Patient was endorsed to me by ED physician Dr. Rojas (secondary to end of his shift) with [facility] neurosurgery return call pending. Discussed the patient's case with [facility] neurosurgeon (Dr. Cespedes) he recommends transfer to their emergency department. Case was then dis cussed with [facility] ED physician Dr. York who has accepted ambulance tansfer to their ED.] Undiagnosed new problem with uncerai prognosis? @ -[No] Drug Therapy requiring intensive monitoring for toxicity (Heparin, Nitro, Insuin Cardizem)? @ -[No] Were any pocdures done? @ -[No] Dianoss/symptom? @ -[UTI] Acute, or Chronic, or Acte on Cronic? @ -[default] Uncomplicated (without systemic symptoms) or Complicated (systmic symtoms)? @ -[default] Side effect o treatment? @ -[No] Exacerbation, Progression, or Sever Eacerbation? @ -[No] Poses a threat to life or bodily function? How? (Chest pain, USA, SC, pneumonia, PE, COPD, DKA, ARF, appy, cholecystitis, CVA, Diverticulitis, Homicidal, Suicidal, threat to staff... and all criicl care pts) @ -[No] Diagnosis/symptom? @ -Altered mental status Acute, or Chronic, or Acte on Chronic? @ -[acute Uncomplicated (without systemic symptoms) or Complicated (systmic symtoms)? @ -[default] Side effect of reatment? @ -[none] Exacerbation, Progression, orSever Eacerbation] @ -[no] Poses a threat to life or bdiy function? @ -[no] Diagnosis/symptom? @ -Head mass Acute, or Chronic, or Acte on Cronic? @ -[default] Uncomplicated (without systemic symptoms) or Complicated (systmic symtoms)? @ -[default] Side effect of reatment? @ -[none] Exacerbation, Progression, or Sever Eacerbation] @ -[no] Poses a threat to life or bdiy function? @ -[no] (CynDm) - Lab Data Lab Results 02/25/23 02/25/23 02/25/23 Range/Units 11:07 11:07 11:07 WBC 9.7 (3.8-10.6) k/uL RBC 3.54 L (4.30-5.90) m/uL Hgb 10.3 L (13.0-17.5) gm/dL Hct 31.3 L (39.0-53.0) % MCV 88.4 (80.0-100.0) fL MCH 29.0 (25.0-35.0) pg MCHC 32.8 (31.0-37.0) g/dL RDW 13.7 (11.5-15.5) % Plt Count 411 (150-450) k/uL MPV 7.6 Neutrophils % 85 % Lymphocytes % 7 % Monocytes % 7 % Eosinophils % 1 % Basophils % 0 % Neutrophils # 8.2 H (1.3-7.7) k/uL Lymphocytes # 0.7 L (1.0-4.8) k/uL Monocytes # 0.7 (0-1.0) k/uL Eosinophils # 0.1 (0-0.7) k/uL Basophils # 0.0 (0-0.2) k/uL Hypochromasia Slight PT 11.0 (10.0-12.5) sec INR 1.0 (<1.2) APTT 21.2 L (22.0-30.0) sec VBG pH (7.31-7.41) VBG pCO2 (37-51) mmHg VBG HCO3 (24-28) mmol/L Sodium (137-145) mmol/L Potassium (3.5-5.1) mmol/L Chloride (98-107) mmol/L Carbon Dioxide (22-30) mmol/L Anion Gap mmol/L BUN (9-20) mg/dL Creatinine (0.66-1.25) mg/dL Est GFR (CKD-EPI)AfAm (>60 ml/min/1.73 sqM) Est GFR (CKD-EPI)NonAf (>60 ml/min/1.73 sqM) Glucose (74-99) mg/dL Calcium (8.4-10.2) mg/dL Total Bilirubin (0.2-1.3) mg/dL AST (17-59) U/L ALT (4-49) U/L Alkaline Phosphatase (38-126) U/L Troponin I (0.000-0.034) ng/mL Total Protein (6.3-8.2) g/dL Albumin (3.5-5.0) g/dL Urine Color Yellow Urine Appearance Slightly Cloudy (Clear) Urine pH 6.0 (5.0-8.0) Ur Specific [place] 1.025 (1.001-1.035) Urine Protein Trace H (Negative) Urine Glucose (UA) Negative (Negative) Urine Ketones Negative (Negative) Urine Blood Trace (Negative) Urine Nitrite Negative (Negative) Urine Bilirubin Negative (Negative) Urine Urobilinogen 4.0 (<2.0) mg/dL Ur Leukocyte Esterase Large (Negative) Urine RBC 8 H (0-5) /hpf Urine WBC 162 H (0-5) /hpf Urine WBC Clumps Few H (None) /hpf Ur Squamous Epith Cells 1 (0-4) /hpf Urine Bacteria Occasional H (None) /hpf Urine Mucus Rare H (None) /hpf Urine Opiates Screen Not Detected (NotDetected) Ur Oxycodone Screen Not Detected (NotDetected) Urine Methadone Screen Not Detected (NotDetected) Ur Propoxyphene Screen Not Detected (NotDetected) Ur Barbiturates Screen Not Detected (NotDetected) U Tricyclic Antidepress Not Detected (NotDetected) Ur Phencyclidine Scrn Not Detected (NotDetected) Ur Amphetamines Screen Not Detected (NotDetected) U Methamphetamines Scrn Not Detected (NotDetected) U Benzodiazepines Scrn Not Detected (NotDetected) Urine Cocaine Screen Not Detected (NotDetected) U Marijuana (THC) Screen Not Detected (NotDetected) 02/25/23 02/25/23 02/25/23 Range/Units 11:07 11:07 13:48 WBC (3.8-10.6) k/uL RBC (4.30-5.90) m/uL Hgb (13.0-17.5) gm/dL Hct (39.0-53.0) % MCV (80.0-100.0) fL MCH (25.0-35.0) pg MCHC (31.0-37.0) g/dL RDW (11.5-15.5) % Plt Count (150-450) k/uL MPV Neutrophils % % Lymphocytes % % Monocytes % % Eosinophils % % Basophils % % Neutrophils # (1.3-7.7) k/uL Lymphocytes # (1.0-4.8) k/uL Monocytes # (0-1.0) k/uL Eosinophils # (0-0.7) k/uL Basophils # (0-0.2) k/uL Hypochromasia PT (10.0-12.5) sec INR (<1.2) APTT (22.0-30.0) sec VBG pH 7.44 H (7.31-7.41) VBG pCO2 38 (37-51) mmHg VBG HCO3 26 (24-28) mmol/L Sodium 136 L (137-145) mmol/L Potassium 4.0 (3.5-5.1) mmol/L Chloride 100 (98-107) mmol/L Carbon Dioxide 25 (22-30) mmol/L Anion Gap 11 mmol/L BUN 21 H (9-20) mg/dL Creatinine 0.71 (0.66-1.25) mg/dL Est GFR (CKD-EPI)AfAm >90 (>60 ml/min/1.73 sqM) Est GFR (CKD-EPI)NonAf >90 (>60 ml/min/1.73 sqM) Glucose 112 H (74-99) mg/dL Calcium 9.1 (8.4-10.2) mg/dL Total Bilirubin 0.5 (0.2-1.3) mg/dL AST 18 (17-59) U/L ALT 11 (4-49) U/L Alkaline Phosphatase 71 (38-126) U/L Troponin I <0.012 (0.000-0.034) ng/mL Total Protein 6.6 (6.3-8.2) g/dL Albumin 3.3 L (3.5-5.0) g/dL Urine Color Urine Appearance (Clear) Urine pH (5.0-8.0) Ur Specific [place] (1.001-1.035) Urine Protein (Negative) Urine Glucose (UA) (Negative) Urine Ketones (Negative) Urine Blood (Negative) Urine Nitrite (Negative) Urine Bilirubin (Negative) Urine Urobilinogen (<2.0) mg/dL Ur Leukocyte Esterase (Negative) Urine RBC (0-5) /hpf Urine WBC (0-5) /hpf Urine WBC Clumps (None) /hpf Ur Squamous Epith Cells (0-4) /hpf Urine Bacteria (None) /hpf Urine Mucus (None) /hpf Urine Opiates Screen (NotDetected) Ur Oxycodone Screen (NotDetected) Urine Methadone Screen (NotDetected) Ur Propoxyphene Screen (NotDetected) Ur Barbiturates Screen (NotDetected) U Tricyclic Antidepress (NotDetected) Ur Phencyclidine Scrn (NotDetected) Ur Amphetamines Screen (NotDetected) U Methamphetamines Scrn (NotDetected) U Benzodiazepines Scrn (NotDetected) Urine Cocaine Screen (NotDetected) U Marijuana (THC) Screen (NotDetected) Disposition <Paddy Rojas - Last Filed: 02/25/23 16:20> Is patient prescribed a controlled substance at d/c from ED?: No Time of Disposition: 17:05 - Out of Hospital Transfer - Req. Specs Out of Hospital Transfer - Requested Specifics: Other Emergency Center ([facility] emergency department) <Dm Jimenez - Last Filed: 02/25/23 17:21> Clinical Impression: Urinary tract infection, History of lung cancer, Head mass Disposition: OTHER INSTITUTION NOT DEFINED Condition: Stable Referrals: Moses Bruno MD [Primary Care Provider] - 1-2 days
[2023-02-25 11:18] VITALS: RESP 18; TEMP 97.7
[2023-02-25 11:39] LABS: Basophils % (A) 0 %; Eosinophils # (A) 0.1 k/uL (0-0.7); Eosinophils % (A) 1 %; HCT 31.3 % (39.0-53.0); HGB 10.3 gm/dL (13.0-17.5); Hypochromasia Slight; Lymphocytes # (A) 0.7 k/uL (1.0-4.8); Lymphocytes % (A) 7 %; MCHC 32.8 g/dL (31.0-37.0); MCV 88.4 fL (80.0-100.0); Mean Platelet Volume 7.6; Monocytes # (A) 0.7 k/uL (0-1.0); Monocytes % (A) 7 %; Neutrophils # (A) 8.2 k/uL (1.3-7.7); Neutrophils % (A) 85 %; Platelet Count 411 k/uL (150-450); RBC 3.54 m/uL (4.30-5.90); RDW 13.7 % (11.5-15.5); WBC 9.7 k/uL (3.8-10.6)
[2023-02-25 12:03] LABS: Partial Thromboplastin Time 21.2 sec (22.0-30.0)
[2023-02-25 12:04] LABS: ALT 11 U/L (4-49); AST 18 U/L (17-59); African American GFR (CKD) >90 (>60 ml/min/1.73 sqM); Albumin 3.3 g/dL (3.5-5.0); Alkaline Phosphatase 71 U/L (38-126); Anion Gap 11 mmol/L; Blood Urea Nitrogen 21 mg/dL (9-20); Calcium 9.1 mg/dL (8.4-10.2); Carbon Dioxide 25 mmol/L (22-30); Chloride 100 mmol/L (98-107); Glucose 112 mg/dL (74-99); Non-African American GFR(CKD) >90 (>60 ml/min/1.73 sqM); Sodium 136 mmol/L (137-145); Total Bilirubin 0.5 mg/dL (0.2-1.3); Total Protein 6.6 g/dL (6.3-8.2)
--- NOTE | 2023-02-25 12:04 | XR ---
EXAMINATION TYPE: XR chest 2V DATE OF EXAM: 02/25/2023 COMPARISON: 06/21/2016 INDICATION: Increased mental status changes TECHNIQUE: Frontal and lateral views of the chest are obtained. FINDINGS: The heart size is normal. The pulmonary vasculature is normal. There is a posterior right infrahilar masslike area of increased density estimated 8.5 x 5.5 cm.. No additional suspicious infiltrates or nodules evident. IMPRESSION: 1. Mass or infiltrate right posterior infrahilar region. Workup for neoplasm is recommended. Other et iologies including pneumonia are within the differential.
--- NOTE | 2023-02-25 13:41 | CT ---
EXAMINATION TYPE: CT brain wo con DATE OF EXAM: 02/25/2023 COMPARISON: INDICATION: AMS DLP: 1196.4 mGycm, Automated exposure control for dose reduction was used. CONTRAST: None CT of the brain is performed utilizing 3 mm thick sections through the posterior fossa and 3 mm thick sections through the remaining calvarium. Study is performed within 24 hours of arrival to the hosp ital. No abnormal hyperdensity is present to suggest an acute intracranial hemorrhage. No mass lesion is evident. 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 There is prominent soft tissue swelling over the right frontal region. There is a curvilinear slightl y hyperdense area within the calvarium opening measuring approximately 1.3 cm. Subpectoral hematoma a nd postsurgical change could be considered. This has mild mass effect on the adjacent brain. No posts urgical images available at this location. No acute infarcts are evident. Ventricles and sulci are appropriate for the patient age. Paranasal sinuses and mastoid air cells within the [id number] are clear. IMPRESSION: 1. There is prominent soft tissue swelling over the right frontal region. 2. Curvilinear collection could be a subdural hematoma under the soft tissue swelling at the cranioto my site. This has a depth 1.3 cm with mild mass effect on the adjacent brain. 3. Previous basilar tip aneurysm is not identified. Beam hardening artifact from coiling is evident.
[2023-02-25 14:13] LABS: Bacteria,Urine Occasional /hpf; Mucus,Urine Rare /hpf; RBC,Urine 8 /hpf (0-5); Squamous Epithelial Cell,Urine 1 /hpf (0-4); WBC,Urine 162 /hpf (0-5)
[2023-02-25 14:14] LABS: Appearance,Urine Slightly Cloudy (Clear); Bilirubin,Urine Negative (Negative); Blood,Urine Trace (Negative); Color,Urine Yellow; Glucose,Urine (UA) Negative (Negative); Ketones,Urine Negative (Negative); Protein,Urine Trace (Negative); Specific Gravity,Urine 1.025 (1.001-1.035)
[2023-02-25 14:15] LABS: Leukocyte Esterase,Urine Large (Negative); Nitrite,Urine Negative (Negative)
[2023-02-25 14:16] LABS: Amphetamine Screen,Urine Not Detected (NotDetected); Barbiturate Screen,Urine Not Detected (NotDetected); Benzodiazepines Screen,Urine Not Detected (NotDetected); Cocaine Screen,Urine Not Detected (NotDetected); Methadone Screen, Urine Not Detected (NotDetected); Opiate Screen,Urine Not Detected (NotDetected); Oxycodone Screen, Urine Not Detected (NotDetected); Phencyclidine Screen,Urine Not Detected (NotDetected); Tricyclic Antidepressant,Urine Not Detected (NotDetected); Urn Cannabinoid Scrn Not Detected (NotDetected)
[2023-02-25 14:19] LABS: VBG PH 7.44 (7.31-7.41)
[2023-02-25] MEDS ORDERED: cefTRIAXone IN SWFI 1,000 MG/10 ML SYRINGE IVP STA (14:49)
[2023-02-25] MEDS ORDERED: DEXAMETHASONE SOD PHOSPHATE 10 MG/ML 1 ML VIAL IVP STA (16:42)
[2023-02-25 18:14] VITALS: BP 122/66; PULSE 63
== END 2023-02-25 18:06 | disposition other institution (70) ==
LOC: EC 10:48
DX: N39.0 Urinary tract infection, site not specified (principal); R22.0 Localized swelling, mass and lump, head; I10 Essential (primary) hypertension; J44.9 Chronic obstructive pulmonary disease, unspecified; M19.90 Unspecified osteoarthritis, unspecified site; E78.5 Hyperlipidemia, unspecified; F41.9 Anxiety disorder, unspecified; F17.200 Nicotine dependence, unspecified, uncomplicated; Z79.899 Other long term (current) drug therapy; Z85.118 Personal history of other malignant neoplasm of bronchus and lung
CPT/HCPCS: 36415; 94640; 93005; 80053; 82803; 84484; 85025; 85610; 85730; 81001; 80306; 71046; 70450; 99285; 96374; J0696